=== PATIENT | female | born 1945 | race Caucasian/White ===

== ENCOUNTER 2017-09-14 06:27 | Emergency (ER) | payer OTHER ==
[~2017-09-14] VITALS: Ht 152.4 cm; Wt 63.5 kg
[~2017-09-14 06:27] MED LIST: CEFUROXIME500 MG PO; LISINOPRIL10 MG PO; TIZANIDINE HCL4 M1 PO; ULTRAM50 MG PO
[2017-09-14] MEDS ORDERED: ALBUTEROL SULF 0.083% NEB SOLN 3 ML NEB NEB STA (07:17)
[2017-09-14] MEDS ORDERED: METHYLPREDNISOLONE SOD SUCC 125 MG/2ML VIAL IV STA (07:17)
[2017-09-14] MEDS ORDERED: IPRATROPIUM BROMIDE 0.02% 2.5 ML NEB NEB STA (07:17)
[2017-09-14 07:38] LABS: BASOPHILS # (AUTO) 0.1 (0.0-0.1); BASOPHILS % 0.7 % (0.0-1.0); EOSINOPHILS # (AUTO) 0.2 (0.0-0.4); EOSINOPHILS % 3.1 % (0.0-6.0); HEMATOCRIT 48.1 % (34.2-44.1); HEMOGLOBIN 15.7 g/dL (12.0-16.0); LYMPHOCYTES # (AUTO) 1.3 (1.0-3.2); LYMPHOCYTES % 18.2 % (18.0-39.1); MEAN CORPUSCULAR HEMOGLOBIN 30.4 pg (28-32); MEAN CORPUSCULAR HGB CONC 32.6 g/dL (31-35); MEAN CORPUSCULAR VOLUME 93.2 fL (81-99); MONOCYTES # (AUTO) 0.7 (0.2-0.8); MONOCYTES % 10.2 % (4.4-11.3); NEUTROPHILS # (AUTO) 4.8 (2.1-6.9); NEUTROPHILS % 67.5 % (38.7-80.0); PLATELET COUNT 239 x10e3/uL (140-360); RED BLOOD COUNT 5.16 x10e6/uL (3.6-5.1); RED CELL DISTRIBUTION WIDTH 12.5 % (11.7-14.4)
--- NOTE | 2017-09-14 07:49 | Diagnostic Imaging Report ---
PROCEDURE: X-RAY CHEST, TWO VIEWS COMPARISON: Patients [facility], CT, CT CHEST/ABDOMEN/PELVIS WO, 10/30/2011, 18:55. Patients [facility], DX, CHEST SINGLE, 10/30/2011, 14:11. INDICATIONS: COUGH, SHORTNESS OF BREATH FINDINGS: LUNGS: Again noted are bilateral upper lobe pleural-parenchymal scarring, volume loss and a cavitary lesion in the right upper lobe. These findings appear unchanged. There are lung sutures in the right lung field. Retraction in the lingula on the left is increased. Scarring in the left upper lobe is increased. No definite acute findings are seen. PLEURA: No effusions or pneumothorax. HEART \T\ MEDIASTINUM: The heart is within normal size-limits. There are calcified granulomas. BONES \T\ SOFT TISSUES: No acute findings. CONCLUSION: Chronic appearing pleural-parenchymal changes mainly involving the upper lobes with volume loss most likely related to old granulomatous disease. Corky Yusuf D.O. Dictated by: Corky Yusuf D.O. on 09/14/2017 at 7:57 Electronically approved by: Corky Yusuf D.O. on 09/14/2017 at 7:57
[2017-09-14 08:02] LABS: ALANINE AMINOTRANSFERASE 28 IU/L (0-55); ALBUMIN 3.9 g/dL (3.5-5.0); ALBUMIN/GLOBULIN RATIO 1.1 (0.8-2.0); ALKALINE PHOSPHATASE 153 IU/L (40-150); ANION GAP 14.4 mmol/L (8-16); BLOOD UREA NITROGEN 9 mg/dL (7-26); BUN/CREATININE RATIO 13 (6-25); CALCIUM 9.9 mg/dL (8.4-10.2); CARBON DIOXIDE 30 mmol/L (22-29); CHLORIDE 103 mmol/L (98-107); CREATINE KINASE 49 IU/L (29-168); CREATININE, SERUM 0.72 mg/dL (0.57-1.11); EST GLOMERULAR FILTRATION RATE > 60 ML/MIN (60-); GLUCOSE 112 mg/dL (74-118); POTASSIUM 5.4 mmol/L (3.5-5.1); SODIUM 142 mmol/L (136-145)
[2017-09-14 08:09] LABS: TROPONIN I < 0.001 ng/mL (0-0.300)
== END 2017-09-14 10:30 | disposition home or self-care (01) ==
LOC: ER 06:27
DX: R06.00 Dyspnea, unspecified (principal); R05 Cough; J44.1 Chronic obstructive pulmonary disease with (acute) exacerbation; I10 Essential (primary) hypertension; D86.9 Sarcoidosis, unspecified; Z87.891 Personal history of nicotine dependence
CPT/HCPCS: 36415; 71020; 80053; 82550; 82553; 83880; 84484; 85025; 93005; 99284; J2930

== ENCOUNTER 2017-12-28 11:31 | Inpatient (IN) | payer OTHER ==
[~2017-12-28] VITALS: Ht 152.4 cm; Wt 58.1 kg
[2017-12-28] VITALS (27 sets, daily range): BP systolic 101–156; BP diastolic 54–103
--- OUTSIDE RECORDS SUMMARY | 2017-12-28 11:34 | XMS REPORT ---
Author [facility] Address Unknown Phone Unavailable Care Team Providers Care Oracle Reports Developer Name Role Phone CINDY GUZMÁN Unavailable Unavailable Problems This patient has no known problems. Allergies, Adverse Reactions, Alerts This patient has no known allergies or adverse reactions. Medications This patient has no known medications. Results Test Description Test Time Test Comments Text Results Atomic Results Result Comments CHEST 2 VIEWS [place] [address] Patient Name: EDD STOKES MR #: [id number] : 1945 Age/Sex: 72/F Req #: [id number] Adm Physician: Ordered by: SKY GUILLAUME MD Report #: [id number] Location: ER Room/Bed: Procedure: [id number] 0018 DX/CHEST 2 VIEWS Exam Date: 09/14/17 Exam Time : 0720 REPORT STATUS: Signed PROCEDURE: X-RAY CHEST, TWO VIEWS COMPARISON: [facility], CT, CT CHEST/ABDOMEN/PELVIS WO, 2011, 18:55. [facility], DX, CHEST SINGLE, 10/30/2011, 14:11. INDICATIONS: COUGH, SHORTNESS OF BREATH FINDINGS: LUNGS: Again noted are bilateral upper lobe pleural-parenchymal scarring, volume loss and a cavitary lesion in the right upper lobe. These findings appear unchanged. There are lung sutures in the right lung field. Retraction in the lingula on the left is increased. Scarring in the left upper lobe is increased. No definite acute findings are seen. PLEURA: No effusions or pneumothorax. HEART T MEDIASTINUM: The heart is within normal size- limits. There are calcified granulomas. BONES T SOFT TISSUES: No acute findings. CONCLUSION: Chronic appearing pleural- parenchymal changes mainly involving the upper lobes with volume loss most likely related to old granulomatous disease. Patel Yusuf D.O. Dictated by: Patel Yusuf D.O. on 09/14/2017 at 7:57 Electronically approved by: Patel Yusuf D.O. on 09/14/2017 at 7:57 Dictated By: PATEL YUSUF DO [id number] Transcribed By: GENI on 09/14/177 COPY TO: SKY GUILLAUME MD
[2017-12-28 12:01] LABS: BASOPHILS # (AUTO) 0.1 (0.0-0.1); BASOPHILS % 0.6 % (0.0-1.0); EOSINOPHILS # (AUTO) 0.2 (0.0-0.4); EOSINOPHILS % 1.9 % (0.0-6.0); HEMATOCRIT 50.6 % (34.2-44.1); HEMOGLOBIN 17.2 g/dL (12.0-16.0); LYMPHOCYTES # (AUTO) 2.5 (1.0-3.2); LYMPHOCYTES % 25.4 % (18.0-39.1); MEAN CORPUSCULAR HEMOGLOBIN 30.7 pg (28-32); MEAN CORPUSCULAR VOLUME 90.4 fL (81-99); MONOCYTES # (AUTO) 0.5 (0.2-0.8); MONOCYTES % 5.5 % (4.4-11.3); NEUTROPHILS # (AUTO) 6.4 (2.1-6.9); NEUTROPHILS % 66.4 % (38.7-80.0); PLATELET COUNT 320 x10e3/uL (140-360); RED CELL DISTRIBUTION WIDTH 12.5 % (11.7-14.4)
[2017-12-28 12:07] LABS: INR 1.04; PROTHROMBIN TIME 12.8 seconds (11.9-14.5)
[2017-12-28 12:17] LABS: ALANINE AMINOTRANSFERASE 16 IU/L (0-55); ALBUMIN 4.2 g/dL (3.5-5.0); ALBUMIN/GLOBULIN RATIO 1.3 (0.8-2.0); ALKALINE PHOSPHATASE 114 IU/L (40-150); BLOOD UREA NITROGEN 9 mg/dL (7-26); BUN/CREATININE RATIO 14 (6-25); CALCIUM 9.9 mg/dL (8.4-10.2); CARBON DIOXIDE 28 mmol/L (22-29); CHLORIDE 101 mmol/L (98-107); CREATINE KINASE 66 IU/L (29-168); CREATININE, SERUM 0.65 mg/dL (0.57-1.11); EST GLOMERULAR FILTRATION RATE > 60 ML/MIN (60-); GLUCOSE 116 mg/dL (74-118); SODIUM 138 mmol/L (136-145)
[2017-12-28] MEDS ORDERED: ASPIRIN 325 MG TAB PO ONE (12:30)
[2017-12-28] MEDS ORDERED: ASPIRIN 81 MG CHEW TAB PO ONE (13:15)
[2017-12-28] MEDS: NITROGLYCERIN 2% OINT 1 GM PKT TOP SCH (13:21)
[2017-12-28] MEDS: HYDROMORPHONE 1MG/1ML INJ IV PRN (13:30)
[2017-12-28] MEDS ORDERED: ONDANSETRON HCL INJ 2 MG/ML VIAL IV SCH (13:45)
--- NOTE | 2017-12-28 13:55 | Diagnostic Imaging Report ---
PROCEDURE: A single AP view of the chest. COMPARISON: Chest 2 views 09/14/2017. INDICATIONS: CHEST PAIN FINDINGS: Lines/tubes: None. Lungs: Stable biapical pleural and parenchymal changes. Stable cavitary lesion in the right upper lobe. Postoperative changes of the right lung.. Pleura: There is no pleural effusion or pneumothorax. Heart and mediastinum: The heart and the mediastinum are unremarkable. Right hilar and mediastinal calcifications. Bones: No acute bony abnormality. Degenerative changes of the thoracic spine. IMPRESSION: No change since previous examination. Changes consistent with remote infection. Dictated by: Deng Zhang M.D. on 12/28/2017 at 13:56 Electronically approved by: Deng Zhang M.D. on 12/28/2017 at 13:56
[2017-12-28] MEDS ORDERED: PROMETHAZINE 12.5MG/ NACL 0.9% 12.5 MG/50 ML BAG IV STA (15:06)
[2017-12-28 20:30] LABS: CREATINE KINASE MB 30.2 ng/mL (0-5.0)
[2017-12-28] MEDS ORDERED: TRAMADOL HCL 50 MG TAB PO PRN (20:30)
[2017-12-28] MEDS ORDERED: ENOXAPARIN SOD INJ 60 MG/0.6 ML SYR SC SCH (21:00)
[2017-12-28] MEDS ORDERED: CARVEDILOL 3.125 MG TAB PO SCH (21:00)
[2017-12-28] MEDS: ENOXAPARIN SOD INJ 60 MG/0.6 ML SYR SC SCH (21:40)
[2017-12-28] MEDS: ATORVASTATIN 20 MG TAB PO SCH (21:40)
[2017-12-28] MEDS ORDERED: ACETAMINOPHEN 1000 MG/100 ML IV STA (23:24)
[2017-12-29] VITALS (48 sets, daily range): BP systolic 81–123; BP diastolic 23–98
[2017-12-29] MEDS: NITROGLYCERIN 2% OINT 1 GM PKT TOP SCH ×4 (00:56→17:26)
[2017-12-29] MEDS: SODIUM CHLORIDE FLUSH 10 ML SYR INJ PRN (01:30)
[2017-12-29] MEDS: ONDANSETRON HCL INJ 2 MG/ML VIAL IV PRN (01:30)
[2017-12-29] MEDS ORDERED: ACETAMINOPHEN 1000 MG/100 ML IV SCH (06:00)
[2017-12-29 06:35] LABS: CREATINE KINASE MB 29.6 ng/mL (0-5.0)
[2017-12-29 08:17] LABS: CHOL/HDL RATIO 3.1 (3.0-3.6)
[2017-12-29] MEDS: ENOXAPARIN SOD INJ 60 MG/0.6 ML SYR SC SCH ×2 (08:50→21:15)
[2017-12-29] MEDS: ASPIRIN 81 MG CHEW TAB PO SCH (08:50)
[2017-12-29] MEDS ORDERED: CARVEDILOL 3.125 MG TAB PO SCH ×2 (09:00→20:00)
[2017-12-29 14:49] LABS: CREATINE KINASE MB 24.3 ng/mL (0-5.0)
--- NOTE | 2017-12-29 17:14 | History and Physical ---
PRIMARY CARE PHYSICIAN: Dr. Homar Polanco. CHIEF COMPLAINT: Acute myocardial infarction. HISTORY: This is a 72-year-old female with sarcoidosis, pulmonary problem at baseline, came in with increasing chest pain, back pain, shortness of breath after she tried to break up her neighbor's dog and her small dog in a fight. Patient's cardiac enzymes elevated. Her troponin is 2.5 and 3.2. She is stable, however. The patient is pending for further cardiac workup. PAST MEDICAL HISTORY: Sarcoidosis. PAST SURGICAL HISTORY: Noncontributory. SOCIAL HISTORY: Patient does not smoke or use alcohol. No recreational drugs. ALLERGIES: TO IODINE CONTAINING PRODUCT AND CODEINE. HOME MEDICATIONS: Lisinopril and tramadol. REVIEW OF SYSTEMS: As mentioned. PHYSICAL EXAMINATION VITAL SIGNS: Temperature is 98, blood pressure 104/56, pulse rate 64, respirations 18. GENERAL: The patient is not in acute distress. He is awake. HEENT: Normocephalic, atraumatic. Anicteric. NECK: Supple grossly. PULMONARY: Diminished breath sounds without any wheezing. CARDIOVASCULAR: Regular rate and rhythm. ABDOMEN: Soft, unremarkable. EXTREMITIES: No cyanosis or edema. NEUROLOGIC: No focal deficit. LABORATORY: CK level is 218. Troponin I is 2.5 and 3.2 respectively. WBC is 9.6, hemoglobin 17.2, hematocrit 50.6, and platelets are 320. Coagulation unremarkable. IMAGING: Chest x-ray showed no changes since previous exam consistent with remote infection. IMPRESSION 1. Acute myocardial infarction, [id number]-[id number]. 2. Positive troponin I. PLAN: Cardiac catheterization and echocardiogram. Aspirin and statin. We will monitor patient closely. Job#: [id number] VAS
[2017-12-29] MEDS: FAMOTIDINE 20 MG TAB PO SCH (17:26)
--- NOTE | 2017-12-29 19:50 | Consultation ---
DATE OF CONSULTATION: December 29, 2017 CARDIOLOGY CONSULTATION REASON FOR CONSULTATION: Chest pain. HISTORY OF PRESENT ILLNESS: Ms. Gibbs is a 72-year-old pleasant woman with reported history of sarcoidosis and chronic dyspnea, hypertension, presents to [facility] via the emergency department with complaints of chest pain. Her EKG shows sinus rhythm with extensive infarct anterolateral and inferior extensive Q-waves. This is age undetermined. She is ruled in with serial enzymes for non-ST elevation myocardial infarction and has been receiving medical therapy for such since admission, currently chest pain free. Her echocardiogram reveals akinesis of midapical segment of the LV with severe inferior mid and left ventricular systolic function. She denies any prior history of coronary or cardiac diagnosis. A 12-system reviewed negative, except for as noted above. ALLERGIES: IODINE AND CODEINE PER EMR. FAMILY HISTORY: Noncontributory. SOCIAL HISTORY: Denies active smoking, alcohol or drugs. EXAM VITALS: Temperature 97.1, heart rate 64, respiratory rate 20, blood pressure 104/66, O2 sat 99% on nasal cannula. GENERAL: In no acute distress. Alert, active, oriented. NECK: JVP is elevated to lower 3rd of neck. No carotid bruits heard. CHEST: Decreased breath sounds in the lateral bases. CARDIOVASCULAR: Regular rate and rhythm. Normal S1 and S2. No S3, no S4. No murmurs or rubs. ABDOMEN: Soft. EXTREMITIES: Trace edema bilateral lower extremities. Warm distal extremities. Decreased pedal pulses. CARDIOVASCULAR MEDICATIONS 1. Lovenox 60 mg subcutaneously q.12 h. 2. Aspirin 81 mg daily. 3. Carvedilol 3.125 mg every 12 hours with holding parameters. Systolic blood pressure less than 105 or heart rate less than 60. 4. Atorvastatin 40 mg nightly. STUDIES: Reviewed. White blood cells 9.6, hemoglobin 17, platelets 320,000. INR 1. D-dimer are negative. Peak troponin is 3.2. Peak CK is 218, now trending down. Peak CK-MB is 30, now trending down. Sed rate is 90. Total cholesterol 180, LDL 140, HDL 58. Chest x-ray, no change since previous exam. There is right hilar and mediastinal calcifications. ASSESSMENT 1. Non-ST elevation myocardial infarction. 2. 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 Differential included coronary artery disease related, which is Takotsubo cardiomyopathy. 3. Sarcoidosis. Reportedly confirmed by biopsy; however, has not seen this report myself. RECOMMENDATIONS 1. As the blood pressure allows low-dose beta-blockers and low-dose ARB. 2. Statin therapy. 3. Aspirin. 4. Lovenox. 5. Anticipate coronary angiography early next week, tentatively Sunday. Will initiate premedication accordingly for iodine allergy reported on chart. 6. Overall guarded prognosis. Will monitor closely. Job#: [id number] CQ
[2017-12-29] MEDS: CARVEDILOL 3.125 MG TAB PO SCH (21:15)
[2017-12-29] MEDS: ATORVASTATIN 20 MG TAB PO SCH (21:15)
[2017-12-29] MEDS: DIPHENHYDRAMINE HCL 25 MG CAP PO SCH (21:15)
[2017-12-29] MEDS: PREDNISONE 20 MG TAB PO SCH (21:15)
[2017-12-29 22:23] LABS: CREATINE KINASE MB 23.4 ng/mL (0-5.0)
[2017-12-30] VITALS (23 sets, daily range): BP systolic 94–123; BP diastolic 52–76
[2017-12-30 05:31] LABS: BASOPHILS % 0.4 % (0.0-1.0); EOSINOPHILS % 0.1 % (0.0-6.0); HEMOGLOBIN 15.7 g/dL (12.0-16.0); LYMPHOCYTES # (AUTO) 1.1 (1.0-3.2); LYMPHOCYTES % 15.3 % (18.0-39.1); MEAN CORPUSCULAR HEMOGLOBIN 30.2 pg (28-32); MEAN CORPUSCULAR HGB CONC 33.4 g/dL (31-35); MEAN CORPUSCULAR VOLUME 90.4 fL (81-99); MONOCYTES % 0.6 % (4.4-11.3); NEUTROPHILS # (AUTO) 5.8 (2.1-6.9); NEUTROPHILS % 83.2 % (38.7-80.0); PLATELET COUNT 268 x10e3/uL (140-360); RED CELL DISTRIBUTION WIDTH 12.4 % (11.7-14.4)
[2017-12-30 05:48] LABS: INR 1.06; PARTIAL THROMBOPLASTIN TIME 38.2 seconds (23.8-35.5)
[2017-12-30 05:57] LABS: ALANINE AMINOTRANSFERASE 19 IU/L (0-55); ALBUMIN 3.6 g/dL (3.5-5.0); ALBUMIN/GLOBULIN RATIO 1.3 (0.8-2.0); ALKALINE PHOSPHATASE 90 IU/L (40-150); ANION GAP 12.9 mmol/L (8-16); BLOOD UREA NITROGEN 17 mg/dL (7-26); BUN/CREATININE RATIO 26 (6-25); CALCIUM 9.4 mg/dL (8.4-10.2); CARBON DIOXIDE 27 mmol/L (22-29); CHLORIDE 100 mmol/L (98-107); CREATININE, SERUM 0.66 mg/dL (0.57-1.11); EST GLOMERULAR FILTRATION RATE > 60 ML/MIN (60-); GLUCOSE 159 mg/dL (74-118); POTASSIUM 4.9 mmol/L (3.5-5.1); SODIUM 135 mmol/L (136-145)
[2017-12-30] MEDS: NITROGLYCERIN 2% OINT 1 GM PKT TOP SCH ×4 (06:00→18:28)
[2017-12-30 06:11] LABS: CREATINE KINASE MB 13.7 ng/mL (0-5.0)
[2017-12-30] MEDS: PREDNISONE 20 MG TAB PO SCH (08:10)
[2017-12-30] MEDS: CARVEDILOL 3.125 MG TAB PO SCH ×2 (08:10→20:00)
[2017-12-30] MEDS: DIPHENHYDRAMINE HCL 25 MG CAP PO SCH ×2 (08:10→22:12)
[2017-12-30] MEDS: ASPIRIN 81 MG CHEW TAB PO SCH (08:10)
[2017-12-30] MEDS: FAMOTIDINE 20 MG TAB PO SCH ×2 (08:14→16:26)
[2017-12-30] MEDS: ENOXAPARIN SOD INJ 60 MG/0.6 ML SYR SC SCH (08:14)
--- NOTE | 2017-12-30 14:28 | Progress Note ---
DATE: December 30, 2017 CARDIOLOGY PROGRESS NOTE SUBJECTIVE: Denies chest pain or shortness of breath at rest. Extensively discussed echocardiographic findings and plan of care. OBJECTIVE VITAL SIGNS: Temperature 98.8. Heart rate 66, respiratory rate 18, blood pressure 113/55, O2 sat 98% on room air. GENERAL: No acute distress. Alert. NECK: No JVD. CHEST: Clear to auscultation. CARDIOVASCULAR: Regular rate and rhythm. Normal S1 and S2. No S3, no S4. ABDOMEN: Soft. EXTREMITIES: No edema. CARDIOVASCULAR MEDICATIONS: Lovenox 50 mg subcu q.12 h. Prednisone 50 mg daily. Benadryl 25 mg q.12 hours. Pepcid 20 mg b.i.d., aspirin 81 mg daily. Atorvastatin 40 mg nightly. STUDIES: White blood cells 6.9, hemoglobin 15, platelets 268. INR 1. Creatinine 0.6. Sodium 135. Potassium 4.9, chloride 100. Bicarbonate 27. BUN 17. Normal transaminases except for an AST borderline elevated at 47. Cardiac enzymes trending down. ASSESSMENT: 1. Lrf-CT-mmqqxkhwy myocardial infarction. 2. 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 Differential including coronary artery disease versus Takotsubo cardiomyopathy. 3. History of sarcoidosis, presumably reported by biopsy, per patient account. PLAN: 1. Continue beta peterson as blood pressure allows. Tray trial ARB following angiogram. 2. Statin therapy. 3. Aspirin. 4. Hold Lovenox tonight and tomorrow. 5. Coronary angiography. Plan for tomorrow. Patient is premedicated for iodine allergy. Job#: [id number]
[2017-12-30] MEDS: ATORVASTATIN 20 MG TAB PO SCH (22:12)
[2017-12-31] VITALS (7 sets, daily range): BP systolic 102–128; BP diastolic 54–77
[2017-12-31] MEDS: NITROGLYCERIN 2% OINT 1 GM PKT TOP SCH ×4 (05:56→18:00)
[2017-12-31 06:23] LABS: BASOPHILS % 0.2 % (0.0-1.0); EOSINOPHILS % 0.1 % (0.0-6.0); HEMATOCRIT 42.9 % (34.2-44.1); HEMOGLOBIN 14.3 g/dL (12.0-16.0); LYMPHOCYTES # (AUTO) 2.3 (1.0-3.2); LYMPHOCYTES % 13.9 % (18.0-39.1); MEAN CORPUSCULAR HGB CONC 33.3 g/dL (31-35); MEAN CORPUSCULAR VOLUME 92.9 fL (81-99); MONOCYTES # (AUTO) 1.3 (0.2-0.8); MONOCYTES % 7.5 % (4.4-11.3); NEUTROPHILS % 77.9 % (38.7-80.0); PLATELET COUNT 272 x10e3/uL (140-360); RED BLOOD COUNT 4.62 x10e6/uL (3.6-5.1); RED CELL DISTRIBUTION WIDTH 12.6 % (11.7-14.4)
[2017-12-31 06:43] LABS: ALANINE AMINOTRANSFERASE 19 IU/L (0-55); ALBUMIN 3.4 g/dL (3.5-5.0); ALBUMIN/GLOBULIN RATIO 1.4 (0.8-2.0); ALKALINE PHOSPHATASE 82 IU/L (40-150); ANION GAP 11.8 mmol/L (8-16); BLOOD UREA NITROGEN 14 mg/dL (7-26); BUN/CREATININE RATIO 22 (6-25); CALCIUM 9.4 mg/dL (8.4-10.2); CARBON DIOXIDE 30 mmol/L (22-29); CHLORIDE 103 mmol/L (98-107); CREATININE, SERUM 0.64 mg/dL (0.57-1.11); EST GLOMERULAR FILTRATION RATE > 60 ML/MIN (60-); GLUCOSE 100 mg/dL (74-118); POTASSIUM 4.8 mmol/L (3.5-5.1); SODIUM 140 mmol/L (136-145)
[2017-12-31] MEDS ORDERED: FENTANYL CITRATE/PF 100MCG/2 ML INJ ONE (07:10)
[2017-12-31] MEDS ORDERED: IOPAMIDOL 370 MG/ML 200 ML INFUS..BTL INJ ONE (07:10)
[2017-12-31] MEDS ORDERED: HEPARIN SOD (PORCINE) 1000 UNIT/ML 30ML ONE (07:10)
[2017-12-31] MEDS ORDERED: HEPARIN SOD/SOD CHLORIDE 2,000 ML ONE (07:10)
[2017-12-31] MEDS ORDERED: MIDAZOLAM HCL 2 MG/2 ML VIAL ONE (07:10)
[2017-12-31] MEDS ORDERED: LIDOCAINE HCL 2% LOCAL 20 ML VIAL ONE (07:10)
[2017-12-31] MEDS ORDERED: NITROGLYCERIN/D5W 200 MCG/ML 250 ML ONE (07:11)
[2017-12-31] MEDS ORDERED: SODIUM CHLORIDE 0.9% 1000ML 1,000 ML ONE (07:11)
[2017-12-31] MEDS: FAMOTIDINE 20 MG TAB PO SCH ×2 (07:30→18:20)
[2017-12-31] MEDS: CARVEDILOL 3.125 MG TAB PO SCH ×2 (08:00→21:03)
[2017-12-31] MEDS ORDERED: METHYLPREDNISOLONE SOD SUCC 125 MG/2ML VIAL ONE (08:12)
[2017-12-31] MEDS ORDERED: FUROSEMIDE INJ 10 MG/ML 4 ML VIAL ONE (08:27)
[2017-12-31] MEDS ORDERED: ONDANSETRON HCL INJ 2 MG/ML VIAL IV PRN (08:45)
--- NOTE | 2017-12-31 09:15 | Progress Note ---
DATE: December 31, 2017 CARDIOLOGY PROGRESS NOTE SUBJECTIVE: No complaints. Denies chest pain or shortness of breath today. OBJECTIVE VITAL SIGNS: Temperature 97.3, heart rate 54, respiratory rate 18, blood pressure 113/66. O2 sat 100% on 2 liters per minute nasal cannula. GENERAL: No acute distress. Alert. NECK: No JVD. CHEST: Clear to auscultation. CARDIOVASCULAR: Regular rate and rhythm. Normal S1 and S2. Positive S3. No S4. ABDOMEN: Soft. EXTREMITIES: Trace edema. CARDIOVASCULAR MEDICATIONS 1. Nitroglycerin p.r.n. 2. Aspirin 81 mg daily. 3. Atorvastatin 40 mg nightly. 4. Carvedilol 1.56 every 12 hours. 5. Premedicating with prednisone, Pepcid and Benadryl for cardiac catheterization performed today. TELEMETRY: Sinus rhythm with episodes of sinus bradycardia. ASSESSMENT 1. Acute, severe, systolic heart failure, mixed systolic and diastolic. 2. Type-2 myocardial infarction in the setting of Takotsubo cardiomyopathy. 3. History of sarcoidosis. RECOMMENDATIONS: Attempt low-dose ARB and assess tolerance. Patient has borderline blood pressure reads. Continue low dose beta peterson. Continue statin and aspirin. Add Plavix status post coronary angiogram with coronary artery disease present but heart failure out of proportion to level of observed CAD. Therefore, this is a nonischemic cardiomyopathy with associated ischemic component. LVEF 25% to 30% with persistent apical ballooning noted on LV-gram today. Evaluate for LifeVest. Job#: [id number]
[2017-12-31] MEDS: SODIUM CHLORIDE FLUSH 10 ML SYR INJ PRN (09:38)
[2017-12-31] MEDS: HYDROMORPHONE 1MG/1ML INJ IV PRN (09:42)
[2017-12-31] MEDS: DIPHENHYDRAMINE HCL 25 MG CAP PO SCH ×2 (09:42→22:06)
[2017-12-31] MEDS: ONDANSETRON HCL INJ 2 MG/ML VIAL IV PRN (09:42)
--- NOTE | 2017-12-31 10:16 | Operative Report ---
DATE OF PROCEDURE: December 31, 2017 PROCEDURES PERFORMED: 1. Coronary angiography, selective. 2. Left heart catheterization. 3. Right common femoral artery 6-Omani Angio-Seal closure. PROCEDURE ESTIMATED BLOOD LOSS: Less than 15 mL. PROCEDURE COMPLICATIONS: None. PROCEDURE INDICATION: Type 2 ME versus non-ST elevation myocardial infarction in the setting of acute cardiomyopathy with apical ballooning, acute severe mixed systolic and diastolic heart failure. PROCEDURE SUMMARY: After consent was obtained, the patient was prepped and draped in a sterile fashion and the right femoral site was locally infiltrated with 2% lidocaine. Access was obtained using micropuncture kit and a short 6-Omani sheath was placed. JL4 and JR4 6-Omani catheters were used for selective engagement of left main and then the right coronary artery. Angiography was performed in multiple views. A pigtail catheter was used for crossing the aortic valve and hemodynamic measurements were obtained. This was followed by LV gram. The following findings were noted: 1. LV gram reveals the mid to apical segments of LV myocardium to be akinetic with a hyperdynamic base. LV systolic function is severely impaired with LV ejection fraction of 25% to 30%. 2. The left main has luminal irregularities, is large in caliber and gives an LAD and a circumflex. 3. The LAD has ostial 30% stenosis. It gives 2 diagonals, the second of which has small caliber and proximal 70% tubular stenosis. Distal to the second diagonal, there is diffuse area of muscle bridge. The apical most segment of LAD, it is small in caliber and had focal area of 70% stenosis. Overall, MALIK-3 flow is noted throughout all visualized coronary vessels. 4. The circumflex is large in caliber with luminal irregularities and it gives off 2 very tortuous obtuse marginals. 5. The ramus intermedius is dominant with luminal irregularities, gives 2 RV marginals and a terminal RPDA and RPLV of small caliber. 6. LV pressure is 131/11 with end-diastolic pressure of 28. 7. Aortic pressure is 131/64. CONCLUSION: Apical ballooning, acute systolic heart failure with left ventricular ejection fraction of 25% to 30% most consistent with predominant nonischemic cardiomyopathy/Takotsubo cardiomyopathy. There is presence of coronary artery disease, however, the level of heart failure is out of proportion to the magnitude of coronary artery disease. Medical optimization of heart failure and management from a medical standpoint of coronary artery disease is advised. Add clopidogrel to an angiotensin receptor peterson in addition to beta peterson as blood pressure allows. Continue statin therapy and aspirin. Evaluate for LifeVest, diuretic therapy. Stop intravenous fluids. Four hour bed rest. Guarded prognosis. Discussed with patient and family members. Job#: [id number]
[2017-12-31] MEDS: ASPIRIN 81 MG CHEW TAB PO SCH (13:25)
[2017-12-31] MEDS: FUROSEMIDE INJ 10 MG/ML 4 ML VIAL IV SCH (13:25)
[2017-12-31] MEDS: CLOPIDOGREL BISULFATE 75 MG TAB PO SCH (13:25)
[2017-12-31] MEDS: LOSARTAN POTASSIUM 25 MG TAB PO SCH (13:32)
[2017-12-31] MEDS: PREDNISONE 20 MG TAB PO SCH (13:38)
[2017-12-31] MEDS: ATORVASTATIN 20 MG TAB PO SCH (21:03)
[2018-01-01] VITALS (8 sets, daily range): BP systolic 100–120; BP diastolic 58–71
[2018-01-01] MEDS: NITROGLYCERIN 2% OINT 1 GM PKT TOP SCH ×4 (00:58→17:15)
[2018-01-01 06:16] LABS: BASOPHILS % 0.1 % (0.0-1.0); HEMOGLOBIN 15.1 g/dL (12.0-16.0); LYMPHOCYTES # (AUTO) 1.5 (1.0-3.2); LYMPHOCYTES % 10.2 % (18.0-39.1); MEAN CORPUSCULAR HEMOGLOBIN 30.5 pg (28-32); MEAN CORPUSCULAR HGB CONC 33.6 g/dL (31-35); MEAN CORPUSCULAR VOLUME 90.9 fL (81-99); MONOCYTES # (AUTO) 0.5 (0.2-0.8); MONOCYTES % 3.5 % (4.4-11.3); NEUTROPHILS # (AUTO) 12.8 (2.1-6.9); NEUTROPHILS % 85.6 % (38.7-80.0); PLATELET COUNT 335 x10e3/uL (140-360); RED BLOOD COUNT 4.95 x10e6/uL (3.6-5.1); RED CELL DISTRIBUTION WIDTH 12.7 % (11.7-14.4)
[2018-01-01] MEDS: DIPHENHYDRAMINE HCL 25 MG CAP PO SCH ×2 (07:40→20:32)
[2018-01-01 07:50] LABS: ALANINE AMINOTRANSFERASE 48 IU/L (0-55); ALBUMIN 3.5 g/dL (3.5-5.0); ALBUMIN/GLOBULIN RATIO 1.3 (0.8-2.0); ALKALINE PHOSPHATASE 87 IU/L (40-150); ANION GAP 13.2 mmol/L (8-16); BLOOD UREA NITROGEN 19 mg/dL (7-26); BUN/CREATININE RATIO 28 (6-25); CALCIUM 9.2 mg/dL (8.4-10.2); CARBON DIOXIDE 33 mmol/L (22-29); CHLORIDE 95 mmol/L (98-107); CREATININE, SERUM 0.67 mg/dL (0.57-1.11); EST GLOMERULAR FILTRATION RATE > 60 ML/MIN (60-); GLUCOSE 124 mg/dL (74-118); POTASSIUM 4.2 mmol/L (3.5-5.1); SODIUM 137 mmol/L (136-145)
[2018-01-01] MEDS: FUROSEMIDE INJ 10 MG/ML 4 ML VIAL IV SCH (07:55)
[2018-01-01] MEDS: FAMOTIDINE 20 MG TAB PO SCH ×2 (07:55→16:28)
[2018-01-01] MEDS: ASPIRIN 81 MG CHEW TAB PO SCH (07:55)
[2018-01-01] MEDS: CLOPIDOGREL BISULFATE 75 MG TAB PO SCH (07:55)
[2018-01-01] MEDS: CARVEDILOL 3.125 MG TAB PO SCH ×2 (07:56→20:00)
[2018-01-01] MEDS: PREDNISONE 20 MG TAB PO SCH (07:56)
[2018-01-01] MEDS: LOSARTAN POTASSIUM 25 MG TAB PO SCH (07:56)
--- NOTE | 2018-01-01 13:36 | Discharge Summary ---
PRIMARY CARE PHYSICIAN: Dr. Homar Polanco. MANAGER INTENSIVE CARE: Dr. Courtney Flores. FINAL DIAGNOSES: 1. Tra-BG-sreiwzbzd myocardial infarction. 2. Status post cardiac catheterization. Ejection fraction is 25% to 30%. Multiple small-vessel disease. No percutaneous coronary intervention. SUMMARY: The patient is a 72-year-old female who came in with wuz-BA-dseftticn myocardial infarction and acute newly diagnosed systolic dysfunction and congestive heart failure. EF is 25% to 30%. The patient did receive IV furosemide. She is doing much better. The patient underwent cardiac catheterization on December 31, 2017. The patient may have coronary disease but out of proportion to her CO with positive troponin I. Her EF approximately 25% to 30%. Treatment for congestive heart failure and risk factors. The patient is stable. Patient will go home with aspirin 81 mg daily, Lipitor 40 mg nightly, Coreg 3.125 mg at bedtime, Lasix 20 mg daily, potassium 10 mEq daily, losartan 25 mg daily and Plavix 75 mg daily. The patient will have a LifeVest prior to her discharge. The patient will follow up with Dr. Homar Polanco and refer to Cardiology on her network in the near future. The patient is stable, discharged home today. Job#: [id number] EV
--- NOTE | 2018-01-01 14:52 | Progress Note ---
DATE: January 01, 2018 CARDIOLOGY PROGRESS NOTE SUBJECTIVE: The patient denies chest pain or shortness of breath. OBJECTIVE VITAL SIGNS: Temperature 97.6 degrees, pulse 58, respiratory rate 16, blood pressure 100/58. Oxygen saturation is 95%. GENERAL: Awake, alert, in no acute distress. LUNGS: Clear to auscultation bilaterally. No wheezes or crackles. CARDIOVASCULAR: Normal rate, regular rhythm. No murmur. Normal S1 and S2. ABDOMEN: Soft. Nontender. EXTREMITIES: No edema. Right groin without hematoma or bruit. CARDIAC MEDICATIONS 1. Losartan 12.5 mg p.o. daily. 2. Carvedilol 1.5625 p.o. q.12 h. 3. Furosemide 40 mg IV daily. 4. Plavix 75 mg p.o. daily. 5. Aspirin 81 mg daily. 6. Atorvastatin 40 mg p.o. nightly. LABS: WBC 14.97, hemoglobin 15.1, hematocrit 45, platelets 335. Sodium 137, potassium 4.2, chloride 95, CO2 33, BUN 19, creatinine 0.67. TELEMETRY: Sinus bradycardia. IMPRESSION 1. Acute, severe, mixed systolic and diastolic heart failure. 2. Type-2 myocardial infarction in the setting of Takotsubo cardiomyopathy. 3. History of sarcoidosis. RECOMMENDATIONS: The patient is tolerating beta blockade and ARB. Continue current cardiac medications. LifeVest has been ordered, awaiting delivery. Please have the patient follow up with Dr. Flores in the office 2 weeks after discharge. Thank you for this consult. We will continue to follow. Job#: [id number]
[2018-01-01] MEDS ORDERED: ASPIR 8181 MG PO (17:34)
[2018-01-01] MEDS ORDERED: LIPITOR20 MG PO (17:35)
[2018-01-01] MEDS ORDERED: PLAVIX75 MG PO (17:35)
[2018-01-01] MEDS ORDERED: LASIX20 MG PO (17:35)
[2018-01-01] MEDS ORDERED: POTASSIUM CHLO10 MEQ PO (17:36)
[2018-01-01] MEDS ORDERED: COREG3.125 MG PO (18:10)
[2018-01-01] MEDS ORDERED: LOSARTAN POTASS25 MG PO (18:10)
[2018-01-01] MEDS: ATORVASTATIN 20 MG TAB PO SCH (20:32)
== END 2018-01-01 21:30 | disposition home or self-care (01) | DRG 280 ==
LOC: ER 11:31 → ICU 14:41 → IMCU 12-31 01:30
PROVIDERS: ADMIT Internal Medicine; ATTEND Internal Medicine
PROC: 4A023N7 Measurement of Cardiac Sampling and Pressure, Left Heart, Percutaneous Approach (ICD-10-PCS; principal; 2017-12-31)
PROC: B2111ZZ Fluoroscopy of Multiple Coronary Arteries using Low Osmolar Contrast (ICD-10-PCS; 2017-12-31)
PROC: B2151ZZ Fluoroscopy of Left Heart using Low Osmolar Contrast (ICD-10-PCS; 2017-12-31)
DX: I21.4 Non-ST elevation (NSTEMI) myocardial infarction (principal); I50.41 Acute combined systolic (congestive) and diastolic (congestive) heart failure; I51.81 Takotsubo syndrome; D86.9 Sarcoidosis, unspecified; I25.10 Atherosclerotic heart disease of native coronary artery without angina pectoris; Z91.041 Radiographic dye allergy status
CPT/HCPCS: 36140; 36415; 71045; 77002; 80053; 80061; 82550; 82553; 82948; 83880; 84484; 85025; 85379; 85610; 85730; 93005; 93306; 93452; 93458; 96367; 99285; C1769; J1170; J1644; J1650; J1940; J2001; J2250; J2405; J2550; J2930; J7030; Q9967

== ENCOUNTER 2018-06-18 16:10 | Emergency (ER) | payer OTHER ==
[~2018-06-18] VITALS: Ht 152.4 cm; Wt 58.1 kg
[~2018-06-18 16:10] MED LIST changes: +ASPIR 8181 MG PO; +COREG3.125 MG PO; +LASIX20 MG PO; +LIPITOR20 MG PO; +LOSARTAN POTASS25 MG PO; +PLAVIX75 MG PO; +POTASSIUM CHLO10 MEQ PO
[2018-06-18] MEDS ORDERED: ASPIRIN 81 MG CHEW TAB PO ONE ×2 (17:15)
[2018-06-18 17:22] LABS: BASOPHILS # (AUTO) 0.1 (0.0-0.1); BASOPHILS % 0.8 % (0.0-1.0); EOSINOPHILS # (AUTO) 0.2 (0.0-0.4); HEMOGLOBIN 15.5 g/dL (12.0-16.0); LYMPHOCYTES # (AUTO) 2.6 (1.0-3.2); LYMPHOCYTES % 30.7 % (18.0-39.1); MEAN CORPUSCULAR HEMOGLOBIN 31.1 pg (28-32); MEAN CORPUSCULAR HGB CONC 33.7 g/dL (31-35); MEAN CORPUSCULAR VOLUME 92.2 fL (81-99); MONOCYTES # (AUTO) 0.8 (0.2-0.8); MONOCYTES % 9.4 % (4.4-11.3); NEUTROPHILS # (AUTO) 4.8 (2.1-6.9); NEUTROPHILS % 56.9 % (38.7-80.0); PLATELET COUNT 326 x10e3/uL (140-360); RED BLOOD COUNT 4.99 x10e6/uL (3.6-5.1); RED CELL DISTRIBUTION WIDTH 12.4 % (11.7-14.4)
[2018-06-18 17:34] LABS: ALANINE AMINOTRANSFERASE 26 IU/L (0-55); ALBUMIN 4.1 g/dL (3.5-5.0); ALBUMIN/GLOBULIN RATIO 1.4 (0.8-2.0); ALKALINE PHOSPHATASE 102 IU/L (40-150); ANION GAP 16.1 mmol/L (8-16); BLOOD UREA NITROGEN 19 mg/dL (7-26); BUN/CREATININE RATIO 27 (6-25); CALCIUM 10.1 mg/dL (8.4-10.2); CARBON DIOXIDE 29 mmol/L (22-29); CHLORIDE 100 mmol/L (98-107); CREATINE KINASE 95 IU/L (29-168); EST GLOMERULAR FILTRATION RATE > 60 ML/MIN (60-); GLUCOSE 85 mg/dL (74-118); POTASSIUM 4.1 mmol/L (3.5-5.1); SODIUM 141 mmol/L (136-145)
--- NOTE | 2018-06-18 19:02 | Diagnostic Imaging Report ---
EXAMINATION: Head CT HISTORY: Numbness and tingling sensation, hypertension COMPARISON: None. TECHNIQUE: Multidetector axial images were obtained without contrast from the foramen magnum to the vertex . The images were reconstructed using brain and bone algorithms. Thin section brain images were reformatted into coronal and sagittal planes. Intravenous contrast: None. Image quality: Motion/streaking artifact limits the evaluation of the skull base and posterior cranial fossa. Dose modulation, iterative reconstruction, and/or weight based adjustment of the mA/kV was utilized to reduce the radiation dose to as low as reasonably achievable. FINDINGS: Parenchyma: 1. Few scattered white matter hypodensities, likely nonspecific chronic microvascular ischemic changes. 2. No mass or hemorrhage. No CT evidence of acute territorial vascular insult. Extra-axial spaces:No abnormal density. No extra-axial fluid collections Brain volume: Normal for age. Ventricles: No hydrocephalus or displacement. Arteries: No density suggestive of thrombus. Dural sinuses: No abnormal density. Extra-axial spaces: No abnormal density. Foramen magnum: No mass, Chiari malformation, or basilar invagination. Sella: No obvious mass. Paranasal/mastoid sinuses: Imaged portions unremarkable. Skull/Scalp: No lytic or blastic lesions. No fractures. IMPRESSION: 1. No acute intracranial hemorrhage or cortical infarcts. 2. Mild chronic microvascular ischemic changes. Signed by: Dr. Christel Barahona M.D. on 06/18/2018 6:59 PM
[2018-06-18 20:56] VITALS: BP 118/66
== END 2018-06-18 20:57 | disposition home or self-care (01) ==
LOC: ER 16:10
DX: R20.2 Paresthesia of skin (principal); R20.0 Anesthesia of skin
CPT/HCPCS: 36415; 70450; 80053; 82550; 82553; 84484; 85025; 93005; 99283

== ENCOUNTER 2018-08-22 21:12 | Emergency (ER) | payer OTHER ==
[~2018-08-22] VITALS: Ht 152.4 cm; Wt 54.0 kg
[2018-08-22] MEDS ORDERED: IPRATROPIUM BROMIDE 0.02% 2.5 ML NEB NEB STA (21:30)
[2018-08-22] MEDS ORDERED: ASPIRIN 81 MG CHEW TAB PO ONE (21:30)
[2018-08-22] MEDS ORDERED: ALBUTEROL SULF 0.083% NEB SOLN 3 ML NEB NEB STA ×2 (21:52→23:08)
--- NOTE | 2018-08-22 22:14 | Diagnostic Imaging Report ---
EXAMINATION: CHEST SINGLE (PORTABLE) INDICATION: Shortness of breath ^SOB ^[id number] ^2150 ^Y COMPARISON: None FINDINGS: AP view TUBES and LINES: None. LUNGS: Lungs are well inflated. Right upper lobe scarring and cavitation. No images are available comparison chest CT on 10/30/2011, although report notes extensive pleural disease and scarring and cavitation in the right upper lobe. Scattered calcified granulomas. Interstitial opacities likely representing interstitial edema or atypical infection. PLEURA: No pleural effusion or pneumothorax. HEART AND MEDIASTINUM: Scattered mediastinal calcified and hilar lymph nodes. The cardiomediastinal silhouette is unremarkable. BONES AND SOFT TISSUES: No acute osseous lesion. Soft tissues are unremarkable. UPPER ABDOMEN: No free air under the diaphragm. IMPRESSION: Right upper lobe scarring and cavitation which were described in 2012, although no images are available for comparison. Superimposed infection/reactivation TB cannot be excluded. Interstitial opacities likely representing interstitial edema or atypical infection. Signed by: DR. Jose Carlos Ivory MD on 08/22/2018 10:11 PM
[2018-08-22 22:17] LABS: BASOPHILS # (AUTO) 0.1 (0.0-0.1); BASOPHILS % 0.4 % (0.0-1.0); EOSINOPHILS # (AUTO) 0.1 (0.0-0.4); EOSINOPHILS % 0.6 % (0.0-6.0); HEMATOCRIT 45.9 % (34.2-44.1); HEMOGLOBIN 15.4 g/dL (12.0-16.0); LYMPHOCYTES # (AUTO) 2.1 (1.0-3.2); LYMPHOCYTES % 15.1 % (18.0-39.1); MEAN CORPUSCULAR HEMOGLOBIN 31.2 pg (28-32); MEAN CORPUSCULAR HGB CONC 33.6 g/dL (31-35); MEAN CORPUSCULAR VOLUME 92.9 fL (81-99); MONOCYTES # (AUTO) 1.2 (0.2-0.8); MONOCYTES % 8.6 % (4.4-11.3); NEUTROPHILS # (AUTO) 10.4 (2.1-6.9); NEUTROPHILS % 74.9 % (38.7-80.0); PLATELET COUNT 320 x10e3/uL (140-360); RED BLOOD COUNT 4.94 x10e6/uL (3.6-5.1); RED CELL DISTRIBUTION WIDTH 12.1 % (11.7-14.4)
[2018-08-22] MEDS ORDERED: NORVASC5 MG PO (22:28)
[2018-08-22] MEDS ORDERED: LISINOPRIL10 MG PO (22:28)
[2018-08-22 22:29] LABS: INR 0.87; PROTHROMBIN TIME 12.6 seconds (11.9-14.5)
[2018-08-22 22:39] LABS: ALANINE AMINOTRANSFERASE 16 IU/L (0-55); ALBUMIN 4.2 g/dL (3.5-5.0); ALBUMIN/GLOBULIN RATIO 1.2 (0.8-2.0); ALKALINE PHOSPHATASE 105 IU/L (40-150); ANION GAP 14.7 mmol/L (8-16); BLOOD UREA NITROGEN 13 mg/dL (7-26); BUN/CREATININE RATIO 15 (6-25); CALCIUM 10.2 mg/dL (8.4-10.2); CARBON DIOXIDE 31 mmol/L (22-29); CHLORIDE 99 mmol/L (98-107); CREATINE KINASE 104 IU/L (29-168); CREATININE, SERUM 0.87 mg/dL (0.57-1.11); EST GLOMERULAR FILTRATION RATE > 60 ML/MIN (60-); GLUCOSE 117 mg/dL (74-118); POTASSIUM 3.7 mmol/L (3.5-5.1); SODIUM 141 mmol/L (136-145)
[2018-08-22 23:46] LABS: BACTERIA,URINE FEW /HPF; BILIRUBIN,URINE NEGATIVE (NEGATIVE); CLARITY,URINE HAZY (CLEAR); COLOR,URINE YELLOW (YELLOW); EPITHELIAL CELLS,URINE FEW /LPF; KETONES,URINE NEGATIVE (NEGATIVE); LEUKOCYTE ESTERASE ,URINE 1+ (NEGATIVE); NITRITE,URINE NEGATIVE (NEGATIVE); PROTEIN,URINE DIPSTICK NEGATIVE (NEGATIVE); URINE UROBILINOGEN 1 mg/dL (0.2 - 1); WBC,URINE (MAN) 21-50 /HPF (0-5)
[2018-08-22 23:47] LABS: MUCUS,URINE MODERATE (RARE)
[2018-08-23] MEDS ORDERED: CEFTRIAXONE SOD 1 GM VIAL IM ONE
[2018-08-23] MEDS ORDERED: CEFTRIAXONE SOD 1 GM VIAL IV ONE ×2 (00:30)
[2018-08-23 01:23] VITALS: BP 124/45
== END 2018-08-23 01:34 | disposition home or self-care (01) ==
LOC: ER 21:12
DX: R06.00 Dyspnea, unspecified (principal); J98.01 Acute bronchospasm; N30.91 Cystitis, unspecified with hematuria
CPT/HCPCS: 36415; 71045; 80053; 81001; 82550; 82553; 84484; 85025; 85379; 85610; 93005; 94640; 99284; J0696

== ENCOUNTER 2019-05-20 06:06 | Observation (INO) | payer OTHER ==
[2019-05-20] VITALS (7 sets, daily range): BP systolic 121–130; BP diastolic 56–68
[~2019-05-20] VITALS: Ht 152.4 cm; Wt 54.0 kg
[~2019-05-20 06:06] MED LIST changes: +NORVASC5 MG PO
--- OUTSIDE RECORDS SUMMARY | 2019-05-20 06:08 | XMS REPORT | Clinical Summary ---
Author Author [facility]i [facility] Organization [facility] Address Unknown Phone Unavailable Care Team Providers Care Hog Cutter Name Role Phone Homar Polanco MD PCP Allergies Comments Active Allergy Reactions Severity Noted Date Fish Containing Products Swelling Medium 02/03/2019 Medications End Date Status Medication Sig Dispensed Refills Start Date Active albuterol (PROAIR Inhale 2 0 HFA,PROVENTIL puffs every 4 9 HFA,VENTOLIN HFA) 90 (four) hours mcg/actuation inhaler as needed. Active atorvastatin (LIPITOR) 40 Take 1 tablet 0 //201 MG tablet by mouth 9 every evening. Active clopidogrel (PLAVIX) 75 Take 1 tablet 0 12/21/201 mg tablet by mouth 9 every evening. Active donepezil (ARICEPT) 5 MG Take 1 tablet 0 01/03/201 tablet by mouth 9 nightly. Active potassium chloride Take 10 mEq 0 (K-DUR,KLOR-CON) 10 MEQ by mouth CR tablet every evening. Active aspirin (ECOTRIN) 81 MG Take 81 mg by 0 enteric coated tablet mouth every evening. Active albuterol (ACCUNEB) 2.5 Take 2.5 mg 0 mg /3 mL (0.083 %) by nebulizer solution nebulization 3 (three) times a day. 02/04/2019 Discontinued (Med List Cleanup) lisinopril Take 10 mg by 0 (PRINIVIL,ZESTRIL) 10 mg mouth every tablet evening. 02/05/2019 Discontinued (Stop Taking at Discharge) amLODIPine (NORVASC) 10 Take 1 tablet 0 04/03/201 mg tablet by mouth 9 every evening. 02/05/2019 Discontinued (Stop Taking at Discharge) carvedilol (COREG) 3.125 Take 1 tablet 0 /03/201 MG tablet by mouth 9 every evening. 02/05/2019 Discontinued (Stop Taking at Discharge) furosemide (LASIX) 20 mg Take 1 tablet 0 tablet by mouth 9 every evening. 02/05/2019 Discontinued (Stop Taking at Discharge) lisinopril-hydrochlorothi Take 1 tablet 0 azide by mouth 9 (PRINZIDE,ZESTORETIC) every 10-12.5 mg per tablet evening. 02/05/2019 Discontinued (Stop Taking at Discharge) losartan (COZAAR) 25 MG Take 1 tablet 0 tablet by mouth 9 every evening. 03/07/2019 losartan (COZAAR) 25 MG Take 0.5 15 tablet 0 tablet tablets (12.5 9 mg total) by mouth every evening for 30 days. Active Problems Problem Noted Date Chest pain 02/04/2019 Encounters Care Team Description Date Type Specialty Hamsukh Casas MD Al-Lahiq, Maha, MD Chest pain, unspecified type (Primary Dx); Palpitations; Bradycardia, drug induced 02/04/2019 Emergency General Internal Medicine - 02/05/2019 02/04/2019 Travel after 05/19/2018 Social History Date Tobacco Use Types Packs/Day Years Used Never Smoker Smokeless Tobacco: Never Used Drinks/Week oz/Week Comments Alcohol Use No Alcohol Habits Answer Date Recorded How often do you have a drink containing alcohol? Never 02/04/2019 How many drinks containing alcohol do you have on Not asked a typical day when you are drinking? How often do you have six or more drinks on one Not asked occasion? Sex Assigned at Date Recorded Not on file Industry Job Start Date Occupation Not on file Not on file Not on file Travel End Travel History Travel Start No recent travel history available. Last Filed Vital Signs Reading Time Taken Comments Vital Sign 100/51 02/05/2019 10:35 AM CDT Blood Pressure 53 02/05/2019 10:35 AM CDT Pulse 36.6 C (97.9 F) 02/05/2019 10:35 AM CDT Temperature 20 02/05/2019 10:35 AM CDT Respiratory Rate 95% 02/05/2019 10:35 AM CDT Oxygen Saturation - - Inhaled Oxygen Concentration 56.7 kg (125 lb) 02/03/2019 11:47 PM CDT Weight 152.4 cm (5') 02/03/2019 11:47 PM CDT Height 24.41 02/03/2019 11:47 PM CDT Body Mass Index Plan of Treatment Health Maintenance Due Date Last Done Comments BREAST CANCER SCREENING 1995 COLONOSCOPY SCREENING 1995 SHINGLES VACCINES (#1) 1995 65+ PNEUMOCOCCAL VACCINE 2010 (1 of 2 - PCV13) INFLUENZA VACCINE 05/01/2019 Procedures Comments Procedure Name Priority Date/Time Associated Diagnosis ESTIMATED GFR Routine 02/05/2019 4:43 AM CDT BASIC METABOLIC PANEL Routine 02/05/2019 4:43 AM CDT LIPID PANEL Routine 02/05/2019 4:43 AM CDT THYROID STIMULATING Routine 02/05/2019 HORMONE 4:43 AM CDT TROPONIN Timed 02/04/2019 8:10 AM CDT ECHOCARDIOGRAM 2D Routine 02/04/2019 COMPLETE W MMODE SPECTRAL 8:06 AM CDT COLOR DOPPLER ([id number]) TROPONIN Timed 02/04/2019 4:12 AM CDT ECG 12-LEAD Routine 02/04/2019 4:[address] HEAD WO CONTRAST STAT 02/04/2019 1:48 AM CDT XR CHEST 2 VW STAT 02/04/2019 12:54 AM CDT ESTIMATED GFR STAT 02/04/2019 12:40 AM CDT URINALYSIS SCREEN AND Routine 02/04/2019 MICROSCOPY, WITH REFLEX 12:40 AM CDT TO CULTURE MAGNESIUM LEVEL STAT 02/04/2019 12:40 AM CDT TROPONIN STAT 02/04/2019 12:40 AM CDT HC COMPLETE BLD COUNT STAT 02/04/2019 W/AUTO DIFF 12:40 AM CDT BASIC METABOLIC PANEL STAT 02/04/2019 12:40 AM CDT URINE CULTURE Routine 02/04/2019 12:40 AM CDT ECG 12-LEAD STAT 02/03/2019 11:44 PM CDT after 05/19/2018 Results * Estimated GFR (02/05/2019 4:43 AM CDT) Only the most recent of 2 results within the time period is included. Pathologist [facility] Estimated GFR 63 mL/min/1.73 m2 [place] Comment: [facility] rpretation G1 >=90 Normal or high G2 60-89Mildly decreased [id number] Mildly to moderately decreased [id number] Moderately to severely decreased G4 15-29Severely decreased G5 <15Kidney failure The eGFR was calculated using the Chronic Kidney Disease Epidemiology Collaboration (CKD-EPI) equation. Interpretation is based on recommendations of the National Kidney Foundation-Kidney Disease Outcomes Quality Initiative (NKF-KDOQI) published in 2014. Specimen Plasma specimen Performing Organization Address City/[facility] Phone Number [address] [place] [address] PATHOLOGY AND GENOMIC MEDICINE [address] * Thyroid stimulating hormone (02/05/2019 4:43 AM CDT) [facility] TSH 1.24 0.27 - 4.20 uIU/mL [facility] Specimen Plasma specimen Performing Organization Address [place]/[facility] Phone Number [address] [place] [address] PATHOLOGY AND GENOMIC MEDICINE [address] * Lipid panel (02/05/2019 4:43 AM CDT) [facility] Cholesterol 121 <200 mg/dL [facility] Triglycerides 81 (A) <150 mg/dL [facility] HDL cholesterol 55 >40 mg/dL [facility] LDL cholesterol 61Comment: Result obtained by <100 mg/dL [place] direct LDL measurement [facility] Comment: [facility] Total Cholesterol [facility] (mg/dL) <200 Desirable 200-239Borderline -high >=240High Triglycerides (mg/dL) <150 Normal 150-199Borderline -high 200-499High >=500Very high HDL Cholesterol (mg/dL) <40Low (male) <40Low (female) LDL Cholesterol (mg/dL) <100 Optimal 100-129Near or above optimal 130-159Borderline -high 160-189High >=190Very high Risk Catergories that modify LDL goals. Risk Catergories LDL goal (mg/dL) CHD and CHD risk equivalent<100 (10-year risk >20%) Multiple (2+) risk factors <130 (10-year risk=<20%) 0-1 risk factors <160 (<10-year risk) Defining levels of lipids in metabolic syndrome Triglycerides >=150 mg/dL HDL Cholesterol Men <40 mg/dL Women <40 mg/dL Non-HDL cholesterol is a second target for therapy in persons with high triglycerides (>=200 mg/dL) Specimen Plasma specimen Performing Organization Address City/[facility] Phone Number [facility] [place] [address] [place] [address] PATHOLOGY AND GENOMIC MEDICINE [facility] [id number] [place] [address] [place], [place] [id number] [place] [address] * Basic metabolic panel (02/05/2019 4:43 AM CDT) Only the most recent of 2 results within the time period is included. Sodium 137 135 - 148 mEq/L [facility] Potassium 4.4 3.5 - 5.0 mEq/L [facility] Chloride 98 98 - 112 mEq/L [facility] CO2 28 24 - 31 mEq/L [facility] Anion gap 11@ANIO 7 - 15 mEq/L [facility] BUN 29 (H) 8 - 23 mg/dL [facility] Creatinine 0.90 0.50 - 0.90 mg/dL [facility] Glucose 94 65 - 99 mg/dL [facility] Calcium 9.2 8.8 - 10.2 mg/dL [facility] Specimen Plasma specimen Performing Organization Address City/[facility]/Zipcode Phone Number [facility] DEPARTMENT [address] [place] [address] PATHOLOGY AND GENOMIC MEDICINE [address] * Troponin (02/04/2019 8:10 AM CDT) Only the most recent of 3 results within the time period is included. Pathologist [facility] Troponin <0.300 0.000 - 0.300 ng/mL [place] Comment: [facility] 0.30 - 1.49 [facility] ng/mlMay indicate increased risk of acute coronary syndrome. >=1.5 ng/ml Consistent with acute myocardial infarction. The diagnostic value of a single normal or non-diagnostic result is questionable.Serial samples at 2-6 hour intervals are required to rule out acute myocardial injury. Specimen Plasma specimen Performing Organization Address [place]/[facility] Phone Number [address] [place] [address] PATHOLOGY AND GENOMIC MEDICINE [address] * Echocardiogram complete w contrast and 3D if needed (02/04/2019 8:06 AM CDT) Pathologist [facility] AoV Area, Vmax 2.22 cm2 [facility] AoV Area, VTI 2.11 cm2 [facility] AoV Mean PG 4.78 mmHg [facility] AoV Peak PG 9.08 mmHg [facility] AoV Vmax 1.51 m/s [facility] AoV VTI 0.34 m [facility] IVS,d 0.72 cm [facility] LV,d 3.44 cm [facility] LV EF,A2C 73.97 % [facility] LV EF,A4C 72.99 % [facility] LV EF,BP 72.94 % [facility] [place],d A2C 6.39 cm [facility] [place],d A4C 6.70 cm [facility] [place],s A2C 5.58 cm [facility] [place],s A4C 5.07 cm [facility] LV,s 1.97 cm [facility] LV SV,A2C 43.87 % [facility] LV SV,A4C 48.22 % [facility] LV Vol,d A2C 59.30 mL [facility] LV Vol,d A4C 66.06 ml [facility] LV Vol,d BP 63.70 ml [facility] LV Vol,s A2C 15.43 mL [facility] LV Vol,s A4C 17.84 ml [facility] LV Vol,s BP 17.23 nl [facility] LVOT Diam,S 1.80 cm [facility] LVOT Vmax 1.31 m/s [facility] LVOT VTI 0.28 m [facility] LVPWD,d 0.76 cm [facility] MV E A ratio 1.40 [facility] E wave 215.65 msec [facility] decelartion time MV Peak A Jhon 0.60 m/s [facility] MV valve area p 3.35 cm2 [facility] 1/2 method MV Peak E John 0.84 m/s [facility] MV stenosis 65.75 ms [facility] pressure 1/2 time AV LVOT peak 6.90 mmHg [facility] gradient LV SYS VOL 12.18 ml [facility] LV PATHAK VOL 48.89 ml [facility] LA area s A4C 15.12 cm2 [facility] LV SV Teich 2D 36.71 ml [facility] LVOT SI 46.29 ml/m2 [facility] AoV Cusp sep 1.51 [facility] AoV Vmn 1.05 [facility] IVS s 2D 1.10 [facility] LA Ao Ratio 0.85 [facility] Mmode LVOT Vmn 0.84 [facility] Pt Size 152.40 [facility] Pt Wt 56.70 [facility] LVOT mean grad 3.12 mmHg [facility] LVPW s PLAX 1.02 cm [facility] MV Decel slope 3.88 m/s2 [facility] Velocity Ratio 0.87 m/s [facility] (V1/V2) EF 75.09 % [facility] E/A ratio 1.40 [facility] LVOT area 2.54 cm2 [facility] LA volume 35.00 cm3 [facility] LA Area d A4C 40 cm2 [facility] LA diam s 2.20 cm [facility] Aortic Root 2.62 cm [facility] D E excurs 1.90 [facility] E f slope 0.06 [facility] E prime lat 0.06 [facility] E jasen sept 0.05 [facility] Specimen Narrative Performed At [facility] Left ventricular systolic function is normal. Left Ventricular ejection fraction is 55 - 60%. There is pericardial effusion. There is a small pericardial effusion. Spectral Doppler shows impaired relaxation pattern of left ventricular diastolic filling. The doppler, spectral and color flow examination are unremarkable and show no significant flow abnormalities of the aortic, mitral, tricuspid or pulmonic valves Performing Organization Address [place]/[facility] Phone Number [facility] [address] [place] [address] * ECG 12 lead (02/04/2019 4:01 AM CDT) Only the most recent of 2 results within the time period is included. Ventricular 49 [facility] rate Atrial rate 49 [facility] TN interval 184 [facility] QRSD interval 66 [facility] QT interval 468 [facility] QTC interval 422 [facility] P axis 1 71 [facility] QRS axis 1 -83 [facility] T wave axis 76 [facility] EKG impression Sinus bradycardia-Possible [facility] Left atrial enlargement-Left axis [id number] infarct (cited on or before 21-DEC-2015)-Anterolateral infarct (cited on or before 03-FEB-2019)-Abnormal ECG-In automated comparison with ECG of 03-FEB-2019 23:44,-fusion complexes are no longer present-premature atrial complexes are no longer present-Serial changes of Anterior infarct present- Specimen Narrative Performed At Performing Organization Address [facility] Phone Number [facility] [address] [place] [address] * CT Head Wo Contrast (02/04/2019 1:48 AM CDT) Specimen Narrative Performed At EXAMINATION: CT HEAD WO CONTRAST [facility] CLINICAL HISTORY: transient facial numbness COMPARISON:None TECHNIQUE: Noncontrast enhanced images of the brain were obtained from the skull base to the vertex. Both soft tissue and bone reconstruction algorithms were performed.CT scans are performed using radiation dose reduction techniques. Technical factors are evaluated and adjusted to ensure appropriate moderation of exposure. Automated dose management technology is applied to adjust radiation exposure while achieving a diagnostic quality image. FINDINGS: The study was completed emergently after hours at 0200 hours. Artifacts obscure details. There is no definite evidence of acute intracranial hemorrhage or mass, hydrocephalus or midline shift, stroke or thrombus in the vessels. There is nonspecific enlargement of the ventricles and extra axial space greater in the anterior region. There are nonspecific white matter changes.. There is calcification of leyva of some of the arteries. The orbits, sinuses and mastoid air cells do not show acute abnormality. There is nonspecific increased bone density. IMPRESSION: No definite acute intracranial abnormality identified. [facility]-[id number] Procedure Note Interface, Radiology Results Incoming - 02/04/2019 7:04 AM CDT EXAMINATION: CT HEAD WO CONTRAST CLINICAL HISTORY: transient facial numbness COMPARISON: None TECHNIQUE: Noncontrast enhanced images of the brain were obtained from the skull base to the vertex. Both soft tissue and bone reconstruction algorithms were performed. CT scans are performed using radiation dose reduction techniques. Technical factors are evaluated and adjusted to ensure appropriate moderation of exposure. Automated dose management technology is applied to adjust radiation exposure while achieving a diagnostic quality image. FINDINGS: The study was completed emergently after hours at 0200 hours. Artifacts obscure details. There is no definite evidence of acute intracranial hemorrhage or mass, hydrocephalus or midline shift, stroke or thrombus in the vessels. There is nonspecific enlargement of the ventricles and extra axial space greater in the anterior region. There are nonspecific white matter changes.. There is calcification of leyva of some of the arteries. The orbits, sinuses and mastoid air cells do not show acute abnormality. There is nonspecific increased bone density. IMPRESSION: No definite acute intracranial abnormality identified. [facility]-[id number] Performing Organization Address City/State/Zipcode Phone Number [facility] [address] [place] [address] * XR Chest 2 Vw (02/04/2019 12:54 AM CDT) Specimen Narrative Performed At EXAMINATION:XR CHEST 2 VW [facility] CLINICAL HISTORY: Chest pain COMPARISON:12/21/2015 IMPRESSION: Extensive fibrotic changes particularly in the upper lobes with hilar retraction is similar to prior study from 2016. No acute infiltrate noted. There are staple lines in the right mid lung. Heart size is normal. No significant effusion or pneumothorax. Visualized osseous structures are intact. [facility] Procedure Note Interface, Radiology Results Incoming - 02/04/2019 5:46 AM CDT EXAMINATION: XR CHEST 2 VW CLINICAL HISTORY: Chest pain COMPARISON: 12/21/2015 IMPRESSION: Extensive fibrotic changes particularly in the upper lobes with hilar retraction is similar to prior study from 2016. No acute infiltrate noted. There are staple lines in the right mid lung. Heart size is normal. No significant effusion or pneumothorax. Visualized osseous structures are intact. [facility] Performing Organization Address City/State/Zipcode Phone Number [facility]IR[facility]ARR[facility] [address] [place] [address] * Urinalysis screen and microscopy, with reflex to culture (02/04/2019 12:40 AM CDT) Specimen site Clean catch [facility] Color, UA Colorless [facility] Appearance, UA Clear [facility] Specific 1.005 1.001 - 1.035 [place] gravity, UA [facility] pH, UA 6.0 5.0 - 8.5 [facility] Protein, UA Negative Negative [facility] Glucose, UA Negative Negative [facility] Ketones, UA Negative Negative [facility] Bilirubin, UA Negative Negative [facility] Blood, UA Negative Negative [facility] Nitrite, UA Negative Negative [facility] Urobilinogen, Negative <2.0 [facility] Leukocyte Negative Negative [place] esterase, [facility] Epithelial None seen /HPF [place] cells, [facility] Round Few 0 - 1 /HPF [place] epithelial [facility] WBC, UA 0-5 0 - 4 /HPF [facility] RBC, UA None seen 0 - 5 /HPF [facility] Bacteria, UA None seen None seen [facility] Yeast, UA None seen [facility] Yeast with None seen [place] [facility] Specimen Urine Performing Organization Address City/State/Zipcode [place] [address] [place] [address] PATHOLOGY AND GENOMIC MEDICINE [address] [place] [address] [facility] * CBC with platelet and differential (02/04/2019 12:40 AM CDT) WBC 12.03 (H) 4.50 - 11.00 k/uL [facility] RBC 5.12 4.20 - 5.50 m/uL [facility] HGB 15.7 12.0 - 16.0 g/dL [facility] HCT 46.9 37.0 - 47.0 % [facility] MCV 91.6 82.0 - 100.0 fL [facility] MCH 30.7 27.0 - 34.0 pg [facility] MCHC 33.5 31.0 - 37.0 g/dL [facility] RDW - SD 41.6 37.0 - 55.0 fL [facility] MPV 9.7 8.8 - 13.2 fL [facility] Platelet count 331 150 - 400 k/uL [facility] Nucleated RBC 0.00 /100 WBC [facility] Neutrophils 60.0 39.0 - 69.0 % [facility] Lymphocytes 27.8 25.0 - 45.0 % [facility] Monocytes 9.1 0.0 - 10.0 % [facility] Eosinophils 2.1 0.0 - 5.0 % [facility] Basophils 0.7 0.0 - 1.0 % [facility] Specimen Blood Performing Organization Address [place]/[facility] Phone Number [address] [place] [address] PATHOLOGY AND GENOMIC MEDICINE [address] * Urine culture (02/04/2019 12:40 AM CDT) Pathologist [facility] Urine culture SEE COMMENTComment: [place] Bacteriuria screen negative. [facility] Specimen Urine Performing Organization Address City/[facility] Phone Number [address] [place] [address] PATHOLOGY AND GENOMIC MEDICINE [address] * Magnesium level (02/04/2019 12:40 AM CDT) Magnesium 1.9 1.6 - 2.4 mg/dL [facility] Specimen Plasma specimen Performing Organization Address City/[facility] Phone Number [place] [id number] [place] [address] PATHOLOGY AND GENOMIC MEDICINE [facility] [address] [place] [address] [facility] after 05/19/2018 Insurance Type Payer Benefit Subscriber ID Effective Phone Address Plan / Dates Group HMO [employer] TEX[employer] xxxxxxxxx 2018-P NOREEN gil Advance Directives For more information, please contact: [phone] Patient Patternmaker All Around Explanation Type Date Recorded Advance Directives, Living Will and Medical Power of Cut Lace Machine Operator Date Inactivated Comments Code Status Date Activated 02/05/2019 6:44 PM Full Code 02/04/2019 2:55 AM Code Status decision reached by: Patient
[2019-05-20] MEDS ORDERED: AMLODIPINE BESY10 MG PO (06:28)
[2019-05-20] MEDS ORDERED: CARVEDILOL3.125 MG PO (06:28)
[2019-05-20] MEDS ORDERED: FUROSEMIDE20 MG PO (06:28)
[2019-05-20] MEDS ORDERED: ATORVASTATIN CA40 MG PO (06:28)
[2019-05-20] MEDS ORDERED: ONDANSETRON HCL INJ 2MG/ML 2ML 2 MG/ML VIAL IV STA (06:29)
[2019-05-20] MEDS ORDERED: ONDANSETRON HCL INJ 2MG/ML 2ML 2 MG/ML VIAL ONE (06:31)
[2019-05-20 06:32] LABS: BILIRUBIN,URINE NEGATIVE (NEGATIVE); CLARITY,URINE SL CLOUDY (CLEAR); COLOR,URINE YELLOW (YELLOW); KETONES,URINE NEGATIVE (NEGATIVE); LEUKOCYTE ESTERASE ,URINE SMALL (NEGATIVE); NITRITE,URINE POSITIVE (NEGATIVE); PROTEIN,URINE DIPSTICK NEGATIVE (NEGATIVE); URINE UROBILINOGEN 0.2 mg/dL (0.2 - 1)
[2019-05-20 06:51] LABS: BACTERIA,URINE MANY /HPF; EPITHELIAL CELLS,URINE MODERATE /LPF; WBC,URINE (MAN) 21-50 /HPF (0-5)
[2019-05-20 06:52] LABS: BASOPHILS # (AUTO) 0.1 (0.0-0.1); BASOPHILS % 1.1 % (0.0-1.0); EOSINOPHILS # (AUTO) 0.3 (0.0-0.4); EOSINOPHILS % 3.4 % (0.0-6.0); HEMATOCRIT 43.3 % (34.2-44.1); HEMOGLOBIN 14.7 g/dL (12.0-16.0); LYMPHOCYTES # (AUTO) 2.9 (1.0-3.2); LYMPHOCYTES % 36.4 % (18.0-39.1); MEAN CORPUSCULAR HEMOGLOBIN 30.9 pg (28-32); MEAN CORPUSCULAR HGB CONC 33.9 g/dL (31-35); MONOCYTES # (AUTO) 0.7 (0.2-0.8); NEUTROPHILS % 49.8 % (38.7-80.0); PLATELET COUNT 372 x10e3/uL (140-360); RED BLOOD COUNT 4.76 x10e6/uL (3.6-5.1); RED CELL DISTRIBUTION WIDTH 11.8 % (11.7-14.4)
--- NOTE | 2019-05-20 06:58 | NUR ---
received report from off going nurse. patient in radiology. family at bedside.
[2019-05-20 07:00] LABS: ALANINE AMINOTRANSFERASE 21 IU/L (0-55); ALBUMIN/GLOBULIN RATIO 1.1 (0.8-2.0); ALKALINE PHOSPHATASE 85 IU/L (40-150); ANION GAP 17.1 mmol/L (8-16); BLOOD UREA NITROGEN 18 mg/dL (7-26); BUN/CREATININE RATIO 24 (6-25); CALCIUM 9.8 mg/dL (8.4-10.2); CARBON DIOXIDE 29 mmol/L (22-29); CHLORIDE 95 mmol/L (98-107); CREATINE KINASE 326 IU/L (29-168); CREATININE, SERUM 0.76 mg/dL (0.57-1.11); EST GLOMERULAR FILTRATION RATE > 60 ML/MIN (60-); GLUCOSE 108 mg/dL (74-118); POTASSIUM 4.1 mmol/L (3.5-5.1); SODIUM 137 mmol/L (136-145)
[2019-05-20] MEDS ORDERED: ASPIRIN 81 MG CHEW TAB PO ONE (07:00)
[2019-05-20 07:23] LABS: CREATINE KINASE MB < 1.00 ng/mL (0-4.3)
[2019-05-20] MEDS ORDERED: CEFTRIAXONE SOD 1 GM/NS 50 ML 50 ML IV ONE (07:30)
--- NOTE | 2019-05-20 07:56 | Diagnostic Imaging Report ---
EXAMINATION: CHEST 2 VIEWS INDICATION: chest pressure COMPARISON: Chest radiograph 08/22/2018, 12/28/2017 FINDINGS: PA and lateral views TUBES and LINES: None. LUNGS: Extensive mid to upper lung pleural parenchymal scarring, right worse than left, and postsurgical changes in the right midlung PLEURA: No pleural effusion or pneumothorax. HEART AND MEDIASTINUM: The cardiomediastinal silhouette is unremarkable. BONES AND SOFT TISSUES: No acute osseous lesion. Soft tissues are unremarkable. UPPER ABDOMEN: No free air under the diaphragm. Cholecystectomy clips. IMPRESSION: Similar exam compared to August 20, 2018, with extensive mid to upper lung pleural parenchymal scarring, right worse than left, and postsurgical changes in the right midlung. Signed by: Walt Jin DO on 05/20/2019 7:52 AM
[2019-05-20 08:36] LABS: EOSINOPHILS % (MANUAL) 2 % (0-7); LYMPHOCYTES % (MANUAL) 36 % (19-48); MONOCYTES % (MANUAL) 9 % (3.4-9.0); NEUTROPHILS % (MANUAL) 53 % (40-74)
[2019-05-20 08:38] LABS: RBC MORPHOLOGY COMMENT NORMAL
--- NOTE | 2019-05-20 13:33 | History and Physical ---
PRIMARY CARE PHYSICIAN: Homar Polanco MD. ATTENDING PHYSICIAN: Deng Rollins MD CHIEF COMPLAINT: Chest pain. HISTORY OF PRESENT ILLNESS: The patient is a 73-year-old female confused, having urinary infection, complained of some vague chest pain. The patient's cardiac enzymes have been negative. Records showed that the patient has history of cardiomyopathy. The patient has a LifeVest previously with previous cardiac catheterization back in December 2017. The patient had multiple vessel disease. At that time, echocardiogram showed ejection fraction of 25% to 30%. The patient had a LifeVest, discharged at that time. Now, the patient is not wearing LifeVest and there is no ICD. There is no pacemaker. The patient is otherwise stable, confused, urinary tract infection, receive Rocephin. She complained of some chest discomfort. PAST MEDICAL HISTORY: Cardiomyopathy, ejection fraction of less than 30% back in December 2017. Has baseline coronary artery disease multiple vessel disease previously. History of sarcoidosis. Hypertension. Osteoarthritis. SOCIAL HISTORY: The patient does not smoke or use alcohol. No regular drugs. ALLERGIES: TO IODINE CONTAINING PRODUCT AND CODEINE. HOME MEDICATIONS: List is reviewed. REVIEW OF SYSTEMS: The patient is comfortable. Currently, no chest pain or shortness of breath. The patient, however, is confused. PHYSICAL EXAMINATION: VITAL SIGNS: Temperature is 98, blood pressure 155/65, pulse rate 60, respirations 18. GENERAL: The patient is not in acute distress. HEENT: Normocephalic, atraumatic. Pupils reactive, anicteric. NECK: Supple grossly. PULMONARY: Diminished breath sounds. CARDIOVASCULAR: Regular rate and rhythm. ABDOMEN: Soft. EXTREMITIES: No cyanosis or edema NEUROLOGIC: No focal deficit. LABORATORY DATA: WBC 7.9, hemoglobin 14.7, hematocrit 43.3, platelets is 372. Chemistry; sodium 137, potassium 4.1, chloride 95, bicarb 25, BUN 18, creatinine 0.7, glucose is 108. Urinalysis is 6-10 RBC, WBC 25-50, many bacteria, positive nitrite. IMPRESSION: 1. Urinary tract infection. 2. Atypical chest pain. 3. Altered mental status could be from the infection. 4. Baseline cardiomyopathy coronary disease as previously workup. PLAN: Consultation with Dr. Gagandeep Hernandez. The patient is a [employer]. We will get echocardiogram. Resume home medication. Continue with antibiotics. PT/ OT. Observation for now. We will follow up on the patient's status. MD MICHELLE Brown/KAYLIE /[id number]
--- NOTE | 2019-05-20 14:25 | NUR ---
consult called to dr. getachew castle, spoke to Trice
[2019-05-20 14:35] LABS: CREATINE KINASE MB 0.6 ng/mL (0-5.0)
[2019-05-20] MEDS: AMLODIPINE BESYLATE 10 MG TAB PO SCH (16:32)
[2019-05-20] MEDS: CARVEDILOL 3.125 MG TAB PO SCH (16:33)
--- NOTE | 2019-05-20 18:41 | Consultation ---
DATE OF CONSULTATION: Cardiology Consultation CHIEF COMPLAINT: The patient is a 73-year-old with palpitations. HISTORY OF PRESENT ILLNESS: The patient is a 73-year-old, who came to the emergency room stating that her heart was pounding at night. The patient has had no real chest pain. The patient said she is on home oxygen and some chronic dyspnea, which is not changed from her baseline. PAST MEDICAL HISTORY: Significant for: 1. Myocardial infarction in December 2017, with mild coronary artery disease on catheterization and hypokinesis of the anterior wall in apex. 2. The patient had a recent echocardiogram done in March, which demonstrated normal LV size and function, and resolution of the previous wall motion abnormality. 3. The patient has a history of sarcoidosis. 4. The patient has history of hypertension. 5. The patient has a history of cholecystectomy. 6. Previous hysterectomy. MEDICATIONS: At home include Aricept, albuterol aerosols, atorvastatin, losartan, Coreg, and amlodipine. SOCIAL HISTORY: The patient does not drink and does not smoke. FAMILY HISTORY: There is no known family history of coronary artery disease. PHYSICAL EXAMINATION: GENERAL: The patient is a well-developed, well-nourished female, in no distress. VITAL SIGNS: Included temperature of 98, blood pressure was 140/80, and pulse was 60. HEAD, EARS, EYES, NOSE, AND THROAT: The patient's cranium was normocephalic and atraumatic. Extraocular muscles were intact. Sclerae were anicteric. Pupils were equal, round, and reactive to light. There is no pallor or cyanosis of the oral mucosa. There is no erythema or edema of the throat. NECK: Supple. No jugular venous distention. No carotid bruits. CHEST: Demonstrated rhonchi bilaterally. CARDIAC: Demonstrated normal S1 and S2 with a short 2/6 systolic murmur. ABDOMINAL: Demonstrated good bowel sounds. No tenderness and no masses. EXTREMITIES: There was no clubbing, no cyanosis, and no edema. NEUROLOGIC: The patient was alert and oriented x3. Cranial nerves II through XII were intact. Motor strength was +5/+5 in all limbs. IMAGING: The patient's EKG demonstrated normal sinus rhythm with some left ventricular hypertrophy. IMPRESSION: The patient is a 73-year-old with some palpitations. RECOMMENDATIONS: 1. An echocardiogram will need to be checked. 2. The patient will need to be monitored on telemetry. 3. Cardiac enzymes will need to be checked. MD CHARU Farris/KAYLIE /[id number] cc: MD Homar Brown MD
[2019-05-20] MEDS ORDERED: ATORVASTATIN 40 MG TAB PO SCH (21:00)
[2019-05-21 00:18] LABS: CREATINE KINASE 298 IU/L (29-168)
[2019-05-21 04:42] VITALS: BP 152/74
[2019-05-21 06:05] LABS: ANION GAP 9.7 mmol/L (8-16); BLOOD UREA NITROGEN 16 mg/dL (7-26); BUN/CREATININE RATIO 23 (6-25); CALCIUM 9.6 mg/dL (8.4-10.2); CARBON DIOXIDE 37 mmol/L (22-29); CHLORIDE 98 mmol/L (98-107); EST GLOMERULAR FILTRATION RATE > 60 ML/MIN (60-); GLUCOSE 92 mg/dL (74-118); POTASSIUM 4.7 mmol/L (3.5-5.1); SODIUM 140 mmol/L (136-145)
[2019-05-21 06:07] LABS: CREATINE KINASE 290 IU/L (29-168)
[2019-05-21 06:22] LABS: CHOL/HDL RATIO 2.3 (3.0-3.6)
[2019-05-21] MEDS ORDERED: CEFTRIAXONE SOD 1 GM/NS 50 ML 50 ML IV SCH (07:30)
[2019-05-21 07:51] VITALS: BP 140/65
[2019-05-21] MEDS ORDERED: FUROSEMIDE 20 MG TAB PO SCH (09:00)
[2019-05-21] MEDS ORDERED: LOSARTAN POTASSIUM 25 MG TAB PO SCH (09:00)
[2019-05-21] MEDS ORDERED: ASPIRIN 81 MG CHEW TAB PO SCH (09:00)
[2019-05-21] MEDS: AMLODIPINE BESYLATE 10 MG TAB PO SCH (09:13)
[2019-05-21] MEDS: CARVEDILOL 3.125 MG TAB PO SCH (09:15)
[2019-05-21 09:27] VITALS: BP 140/65
[2019-05-21] MEDS ORDERED: CIPRO500 MG PO (10:00)
--- NOTE | 2019-05-21 10:18 | NUR ---
DISCUSSED DISCHARGE, MEDICATION AND FOLLOW UP WITH THE PATIENT, PATIENT RECEIVED HER DISCHARGE PRESCRIPTION FOR CIPRO 500 MG BID.
== END 2019-05-21 11:25 | disposition home or self-care (01) ==
LOC: ER 06:06 → ERHOLD 07:26 → IMCU 11:12
PROVIDERS: ADMIT Family Medicine; ATTEND Family Medicine
DX: N39.0 Urinary tract infection, site not specified (principal); R07.89 Other chest pain; I10 Essential (primary) hypertension; I42.9 Cardiomyopathy, unspecified; Z87.891 Personal history of nicotine dependence; Z91.041 Radiographic dye allergy status; R41.82 Altered mental status, unspecified; I25.2 Old myocardial infarction; I25.10 Atherosclerotic heart disease of native coronary artery without angina pectoris; D86.0 Sarcoidosis of lung; R00.2 Palpitations
CPT/HCPCS: 36415 ×2; 71046; 80048; 80053; 80061; 81001; 82550 ×2; 82553 ×2; 84443; 84484 ×2; 85025; 87086; 87186; 93005; 93306; 96374; 97116; 97161; 99284; G0378 ×2; J0696 ×2; J2405

== ENCOUNTER 2020-12-08 06:23 | Emergency (ER) | payer OTHER ==
[~2020-12-08] VITALS: Ht 152.4 cm; Wt 54.0 kg
[~2020-12-08 06:23] MED LIST changes: +AMLODIPINE BESY10 MG PO; +ATORVASTATIN CA40 MG PO; +CARVEDILOL3.125 MG PO; +CIPRO500 MG PO; +FUROSEMIDE20 MG PO
[2020-12-08 07:13] LABS: BASOPHILS # (AUTO) 0.2 (0.0-0.1); BASOPHILS % 1.8 % (0.0-1.0); EOSINOPHILS # (AUTO) 0.4 (0.0-0.4); EOSINOPHILS % 3.7 % (0.0-6.0); HEMATOCRIT 44.1 % (34.2-44.1); HEMOGLOBIN 14.4 g/dL (12.0-16.0); LYMPHOCYTES # (AUTO) 2.9 (1.0-3.2); LYMPHOCYTES % 30.6 % (18.0-39.1); MEAN CORPUSCULAR HEMOGLOBIN 30.3 pg (28-32); MEAN CORPUSCULAR HGB CONC 32.7 g/dL (31-35); MEAN CORPUSCULAR VOLUME 92.8 fL (81-99); MONOCYTES # (AUTO) 0.8 (0.2-0.8); MONOCYTES % 8.6 % (4.4-11.3); NEUTROPHILS # (AUTO) 5.1 (2.1-6.9); NEUTROPHILS % 54.9 % (38.7-80.0); PLATELET COUNT 364 x10e3/uL (140-360); RED BLOOD COUNT 4.75 x10e6/uL (3.6-5.1); RED CELL DISTRIBUTION WIDTH 11.9 % (11.7-14.4)
[2020-12-08 07:25] LABS: INR 0.89; PROTHROMBIN TIME 12.6 seconds (11.9-14.5)
[2020-12-08 07:26] LABS: PARTIAL THROMBOPLASTIN TIME 27.6 seconds (23.8-35.5)
[2020-12-08 07:35] LABS: ALANINE AMINOTRANSFERASE 16 IU/L (0-55); ALBUMIN 4.1 g/dL (3.5-5.0); ALBUMIN/GLOBULIN RATIO 1.2 (0.8-2.0); ALKALINE PHOSPHATASE 113 IU/L (40-150); ANION GAP 13.8 mmol/L (8-16); BLOOD UREA NITROGEN 23 mg/dL (7-26); BUN/CREATININE RATIO 32 (6-25); CALCIUM 9.4 mg/dL (8.4-10.2); CARBON DIOXIDE 28 mmol/L (22-29); CHLORIDE 99 mmol/L (98-107); CREATINE KINASE 626 IU/L (29-168); CREATININE, SERUM 0.72 mg/dL (0.57-1.11); EST GLOMERULAR FILTRATION RATE > 60 ML/MIN (60-); GLUCOSE 130 mg/dL (74-118); MAGNESIUM 1.8 MG/DL (1.3-2.1); POTASSIUM 3.8 mmol/L (3.5-5.1); SODIUM 137 mmol/L (136-145)
[2020-12-08] MEDS ORDERED: GLIMEPIRIDE2 MG PO (08:11)
[2020-12-08] MEDS ORDERED: SODIUM CHLORIDE 0.9% 250ML 250 ML IV ONE (09:30)
[2020-12-08 12:27] LABS: CREATINE KINASE 530 IU/L (29-168)
[2020-12-08 14:07] VITALS: BP 129/57
== END 2020-12-08 14:10 | disposition home or self-care (01) ==
LOC: ER 07:28
DX: R00.2 Palpitations (principal); R94.31 Abnormal electrocardiogram [ECG] [EKG]; E11.65 Type 2 diabetes mellitus with hyperglycemia; I10 Essential (primary) hypertension; E78.5 Hyperlipidemia, unspecified; I50.9 Heart failure, unspecified; I25.10 Atherosclerotic heart disease of native coronary artery without angina pectoris; D86.9 Sarcoidosis, unspecified; Z20.822 Contact with and (suspected) exposure to COVID-19; I25.2 Old myocardial infarction
CPT/HCPCS: 36415; 71045; 80053; 82550; 82553; 83735; 83880; 84443; 84484; 85025; 85610; 85730; 93005; 99284; J7050; U0002

== ENCOUNTER 2023-01-03 04:38 | Emergency (ER) | payer MEDICARE, OTHER ==
[~2023-01-03] VITALS: Ht 152.4 cm; Wt 54.0 kg
[~2023-01-03 04:38] MED LIST changes: +GLIMEPIRIDE2 MG PO
[2023-01-03] MEDS ORDERED: ONDANSETRON HCL INJ 2MG/ML 2ML 2 MG/ML VIAL IV STA (04:59)
[2023-01-03] MEDS ORDERED: ALBUTEROL/IPRATROPIUM 3 ML NEB NEB ONE (05:00)
[2023-01-03] MEDS ORDERED: ONDANSETRON HCL INJ 2MG/ML 2ML 2 MG/ML VIAL ONE (05:02)
[2023-01-03 05:04] LABS: BASOPHILS % 0.3 % (0.0-1.0); HEMATOCRIT 46.6 % (34.2-44.1); HEMOGLOBIN 15.4 g/dL (12.0-16.0); LYMPHOCYTES # (AUTO) 1.8 (1.0-3.2); LYMPHOCYTES % 29.6 % (18.0-39.1); MEAN CORPUSCULAR HEMOGLOBIN 30.4 pg (28-32); MEAN CORPUSCULAR VOLUME 92.1 fL (81-99); MONOCYTES # (AUTO) 1.2 (0.2-0.8); MONOCYTES % 20.5 % (4.4-11.3); NEUTROPHILS # (AUTO) 2.9 (2.1-6.9); NEUTROPHILS % 49.3 % (38.7-80.0); PLATELET COUNT 194 x10e3/uL (140-360); RED BLOOD COUNT 5.06 x10e6/uL (3.6-5.1); RED CELL DISTRIBUTION WIDTH 12.7 % (11.7-14.4)
[2023-01-03] MEDS ORDERED: ALBUTEROL SULF 0.083% NEB SOLN 3 ML NEB ONE (05:04)
[2023-01-03] MEDS ORDERED: IPRATROPIUM BROMIDE 0.02% 2.5 ML NEB ONE (05:05)
[2023-01-03] MEDS ORDERED: ALBUTEROL SULF 0.083% NEB SOLN 3 ML NEB NEB STA (05:19)
[2023-01-03 05:23] LABS: ALANINE AMINOTRANSFERASE 22 IU/L (0-55); ALBUMIN 3.8 g/dL (3.5-5.0); ALBUMIN/GLOBULIN RATIO 1.3 (0.8-2.0); ALKALINE PHOSPHATASE 94 IU/L (40-150); ANION GAP 19.1 mmol/L (8-16); BLOOD UREA NITROGEN 20 mg/dL (7-26); BUN/CREATININE RATIO 25 (6-25); CALCIUM 8.8 mg/dL (8.4-10.2); CARBON DIOXIDE 24 mmol/L (22-29); CHLORIDE 98 mmol/L (98-107); CREATINE KINASE 561 IU/L (29-168); CREATININE, SERUM 0.79 mg/dL (0.57-1.11); GLUCOSE 131 mg/dL (74-118); POTASSIUM 4.1 mmol/L (3.5-5.1); SODIUM 137 mmol/L (136-145)
[2023-01-03] MEDS ORDERED: IPRATROPIUM BROMIDE 0.02% 2.5 ML NEB NEB ONE (05:30)
[2023-01-03] MEDS ORDERED: PAXLOVID 150-11 EACH PO (05:42)
[2023-01-03 06:10] VITALS: BP 109/50
[2023-01-03 06:36] LABS: LYMPHOCYTES % (MANUAL) 31 % (19-48); MONOCYTES % (MANUAL) 13 % (3.4-9.0); NEUTROPHILS % (MANUAL) 53 % (40-74); PLATELET ESTIMATE ADEQUATE; PLATELET MORPHOLOGY COMMENT NORMAL; RBC MORPHOLOGY COMMENT NORMAL
== END 2023-01-03 06:20 | disposition home or self-care (01) ==
LOC: ER 04:48
DX: R06.00 Dyspnea, unspecified (principal); U07.1 COVID-19; R53.1 Weakness; E11.65 Type 2 diabetes mellitus with hyperglycemia; I10 Essential (primary) hypertension; J44.9 Chronic obstructive pulmonary disease, unspecified; I50.9 Heart failure, unspecified; E78.5 Hyperlipidemia, unspecified; D86.9 Sarcoidosis, unspecified; I25.2 Old myocardial infarction; R94.31 Abnormal electrocardiogram [ECG] [EKG]
CPT/HCPCS: 36415; 71045; 80053; 82550; 82553; 83880; 84484; 85025; 93005; 94799; 99284; J2405; U0002

== ENCOUNTER 2024-04-23 03:18 | Emergency (ER) | payer MEDICARE ==
[~2024-04-23] VITALS: Ht 152.4 cm; Wt 54.0 kg
[~2024-04-23 03:18] MED LIST changes: +PAXLOVID 150-11 EACH PO
[2024-04-23 03:27] VITALS: PULSE 59; RESP 17; TEMP 97.9
[2024-04-23] MEDS ORDERED: SODIUM CHLORIDE 0.9% 1000ML 1,000 ML IV ONE (03:30)
[2024-04-23] MEDS: ONDANSETRON HCL INJ 2MG/ML 2ML 2 MG/ML VIAL IV STA (03:47)
[2024-04-23] MEDS: SODIUM CHLORIDE 0.9% 1000ML 1,000 ML IV ONE (03:48)
[2024-04-23 03:56] LABS: BASOPHILS % 0.4 % (0.0-1.0); EOSINOPHILS % 0.3 % (0.0-6.0); HEMATOCRIT 43.9 % (34.2-44.1); HEMOGLOBIN 14.3 g/dL (12.0-16.0); LYMPHOCYTES # (AUTO) 2.1 (1.0-3.2); LYMPHOCYTES % 21.7 % (18.0-39.1); MEAN CORPUSCULAR HEMOGLOBIN 30.1 pg (28-32); MEAN CORPUSCULAR HGB CONC 32.6 g/dL (31-35); MEAN CORPUSCULAR VOLUME 92.4 fL (81-99); MONOCYTES # (AUTO) 1.3 (0.2-0.8); MONOCYTES % 13.1 % (4.4-11.3); NEUTROPHILS # (AUTO) 6.2 (2.1-6.9); NEUTROPHILS % 64.1 % (38.7-80.0); PLATELET COUNT 269 x10e3/uL (140-360); RED BLOOD COUNT 4.75 x10e6/uL (3.6-5.1); RED CELL DISTRIBUTION WIDTH 12.6 % (11.7-14.4); WHITE BLOOD COUNT 9.63 x10e3/uL (4.8-10.8)
[2024-04-23 04:13] LABS: LIPASE 53 U/L (8-78)
[2024-04-23 04:15] LABS: ALBUMIN 3.6 g/dL (3.5-5.0); ALBUMIN/GLOBULIN RATIO 1.3 (0.8-2.0); ANION GAP 18.8 mmol/L (8-16); BILIRUBIN,TOTAL 0.4 mg/dL (0.2-1.2); CALCIUM 8.8 mg/dL (8.4-10.2); CREATININE, SERUM 0.77 mg/dL (0.57-1.11); POTASSIUM 3.8 mmol/L (3.5-5.1); TOTAL PROTEIN 6.4 g/dL (6.5-8.1)
[2024-04-23 04:21] LABS: TROPONIN I < 0.001 ng/mL (0-0.300)
[2024-04-23] MEDS ORDERED: ONDANSETRON ODT4 MG SL (05:56)
[2024-04-23 09:03] LABS: CLARITY,URINE CLOUDY (CLEAR); COLOR,URINE YELLOW (YELLOW); GLUCOSE, URINE NEGATIVE (NEGATIVE); KETONES,URINE 1+ (NEGATIVE); LEUKOCYTE ESTERASE ,URINE NEGATIVE (NEGATIVE); NITRITE,URINE NEGATIVE (NEGATIVE); PH,URINE 5.5 (5 - 7); PROTEIN,URINE DIPSTICK NEGATIVE (NEGATIVE); URINE UROBILINOGEN 0.2 mg/dL (0.2 - 1)
[2024-04-23 09:04] LABS: BILIRUBIN,URINE NEGATIVE (NEGATIVE)
[2024-04-23 09:19] LABS: BACTERIA,URINE MANY /HPF; EPITHELIAL CELLS,URINE FEW /LPF; RBC,URINE 0-5 /HPF (0-5)
[2024-04-23] MEDS ORDERED: CEFDINIR300 MG PO (09:34)
[2024-04-23 10:26] VITALS: BP 109/64; PULSE 66; RESP 18; TEMP 98.1; O2SAT 100
== END 2024-04-23 10:28 | disposition home or self-care (01) ==
LOC: ER 03:29
DX: S00.83XA Contusion of other part of head, initial encounter (principal); W01.0XXA Fall on same level from slipping, tripping and stumbling without subsequent striking against object, initial encounter; Y93.01 Activity, walking, marching and hiking; Y92.89 Other specified places as the place of occurrence of the external cause; R19.7 Diarrhea, unspecified; R11.0 Nausea; E11.65 Type 2 diabetes mellitus with hyperglycemia; I10 Essential (primary) hypertension; J44.9 Chronic obstructive pulmonary disease, unspecified; I50.9 Heart failure, unspecified; F03.90 Unspecified dementia, unspecified severity, without behavioral disturbance, psychotic disturbance, mood disturbance, and anxiety; I25.10 Atherosclerotic heart disease of native coronary artery without angina pectoris; E78.5 Hyperlipidemia, unspecified; D86.9 Sarcoidosis, unspecified; R94.31 Abnormal electrocardiogram [ECG] [EKG]
CPT/HCPCS: 36415; 70450; 71045; 72125; 74176; 80053; 81001; 83690; 84484; 85025; 93005; 99284; J2405; J7030

== ENCOUNTER 2024-11-13 17:23 | Emergency (ER) | payer MEDICARE ==
[~2024-11-13] VITALS: Ht 152.4 cm; Wt 54.0 kg
[~2024-11-13 17:23] MED LIST changes: +CEFDINIR300 MG PO; +ONDANSETRON ODT4 MG SL
[2024-11-13 17:30] VITALS: TEMP 98.5
[2024-11-13 18:30] LABS: CORONAVIRUS COVID-19 AG NEGATIVE (NEGATIVE); INFLUENZA A AG NEGATIVE (NEGATIVE); INFLUENZA B AG NEGATIVE (NEGATIVE)
[2024-11-13 18:54] LABS: BASOPHILS % 0.4 % (0.0-1.0); EOSINOPHILS % 0.2 % (0.0-6.0); HEMATOCRIT 47.4 % (34.2-44.1); HEMOGLOBIN 14.7 g/dL (12.0-16.0); LYMPHOCYTES % 20.6 % (18.0-39.1); MEAN CORPUSCULAR HEMOGLOBIN 27.5 pg (28-32); MEAN CORPUSCULAR VOLUME 88.8 fL (81-99); MONOCYTES % 9.7 % (4.4-11.3); NEUTROPHILS % 68.7 % (38.7-80.0); PLATELET COUNT 355 x10e3/uL (140-360); RED BLOOD COUNT 5.34 x10e6/uL (3.6-5.1); RED CELL DISTRIBUTION WIDTH 13.7 % (11.7-14.4); WHITE BLOOD COUNT 5.04 x10e3/uL (4.8-10.8)
[2024-11-13 18:55] LABS: MONOCYTES # (AUTO) 0.5 (0.2-0.8); NEUTROPHILS # (AUTO) 3.5 (2.1-6.9)
[2024-11-13] MEDS: ONDANSETRON HCL INJ 2MG/ML 2ML 2 MG/ML VIAL IV STA (19:11)
[2024-11-13 19:31] LABS: ANION GAP 21.9 mmol/L (8-16); POTASSIUM 4.9 mmol/L (3.5-5.1)
[2024-11-13 19:32] LABS: BILIRUBIN,TOTAL 0.5 mg/dL (0.2-1.2); CALCIUM 10.8 mg/dL (8.4-10.2); CREATININE, SERUM 0.68 mg/dL (0.57-1.11); TOTAL PROTEIN 8.2 g/dL (6.5-8.1)
[2024-11-13] MEDS ORDERED: DOXYCYCLINE HY100 MG PO (19:43)
[2024-11-13 19:55] VITALS: PULSE 74; RESP 20; O2SAT 100
[2024-11-13 20:27] LABS: ALBUMIN 3.8 g/dL (3.5-5.0); ALBUMIN/GLOBULIN RATIO 0.9 (0.8-2.0)
== END 2024-11-13 20:00 | disposition home or self-care (01) ==
LOC: ER 18:21
DX: R06.02 Shortness of breath (principal); J40 Bronchitis, not specified as acute or chronic; R05.9 Cough, unspecified; F03.90 Unspecified dementia, unspecified severity, without behavioral disturbance, psychotic disturbance, mood disturbance, and anxiety; I10 Essential (primary) hypertension; E11.9 Type 2 diabetes mellitus without complications; E78.5 Hyperlipidemia, unspecified; J44.9 Chronic obstructive pulmonary disease, unspecified; I50.9 Heart failure, unspecified; I25.10 Atherosclerotic heart disease of native coronary artery without angina pectoris; Z11.52 Encounter for screening for COVID-19; R94.31 Abnormal electrocardiogram [ECG] [EKG]; I25.2 Old myocardial infarction
CPT/HCPCS: 36415; 71045; 80053; 84484; 85025; 87428; 93005; 99284; J2405